=== PATIENT | male | born 1955 | race Caucasian/White ===

== ENCOUNTER → 2018-01-16 | Outpatient (CLI) | payer OTHER ==
--- NOTE | 2018-01-16 11:23 | FL ---
Barium swallow HISTORY: Dysphagia 34 seconds fluoroscopy time, 96 images obtained Patient was given high density barium to drink. There is no obstruction to flow evident. No intrinsic or extrinsic esophageal lesion. Mild degenerative disc changes noted incidentally in the cervical sp ine. No evident hiatal hernia. Small amount of gastroesophageal reflux was noted in the distal esopha rafi. IMPRESSION: Gastroesophageal reflux.
== END | disposition home or self-care (01) ==
LOC: RADFLWHC 08:49
PROVIDERS: ATTEND Otolaryngology
DX: K21.9 Gastro-esophageal reflux disease without esophagitis (principal)
CPT/HCPCS: 74220

== ENCOUNTER → 2018-12-12 | Outpatient (CLI) | payer OTHER ==
--- NOTE | 2018-12-12 09:00 | US ---
EXAMINATION TYPE: US abdomen complete DATE OF EXAM: 12/12/2018 COMPARISON: NONE CLINICAL HISTORY: K30 Functional dyspepsia. EXAM MEASUREMENTS: Liver Length: 24.7 cm Gallbladder Wall: 0.2 cm CBD: 0.3 cm Spleen: 13.0 cm Right Kidney: 12.6 x 5.5 x 6.3 cm Left Kidney: 13.3 x 6.5 x 5.4 cm Morbidly obese patient with large abdomen causing severe technically difficulties and limiting study. Pancreas: Obscured by bowel gas Liver: innumerable cysts, heterogenous and attenuating, enlarged Gallbladder: wnl Evidence for sonographic Crowley's sign: no CBD: wnl Spleen: measures upper limites of normal in size Right Kidney: measures large, inferior pole obscured Left Kidney: very limited visualization, measures large Upper IVC: very limited visualization Abd Aorta: Obscured by overlying bowel gas The liver is diffusely heterogenous with innumerable cysts. Extremely limited evaluation of the IVC a nd obscured aorta. There is no evidence of cholelithiasis. Common bile duct is unremarkable. The p ancreas is obscured. The spleen is unremarkable. Kidneys are mostly obscured. No gross evidence of hydronephrosis. Evaluation for masses is nondiagnostic. IMPRESSION: 1. No sonographic evidence of cholelithiasis nor acute cholecystitis. 2. Hepatomegaly, findings most commonly related to hepatic steatosis but can be seen in other hepatoc ellular diseases, and innumerable hepatic cysts. 3. Spleen is upper limits of normal in size approaching criteria for splenomegaly. 4. No sonographic evidence of cholelithiasis nor acute cholecystitis. 5. Limited exam with obscuration of the pancreas and aorta and very limited evaluation of the kidneys and inferior vena cava.
== END | disposition home or self-care (01) ==
LOC: RADUSWWP 06:40
DX: K76.89 Other specified diseases of liver (principal)
CPT/HCPCS: 76700

== ENCOUNTER → 2019-06-14 | Outpatient (CLI) | payer OTHER ==
[2019-06-14 10:46] LABS: African American GFR (CKD) >90 (>60 ml/min/1.73 sqM); Blood Urea Nitrogen 14 mg/dL (9-20); Non-African American GFR(CKD) >90 (>60 ml/min/1.73 sqM)
--- NOTE | 2019-06-14 11:52 | CT ---
EXAMINATION TYPE: CT abdomen wo/w con DATE OF EXAM: 06/14/2019 COMPARISON: None INDICATION: Epigastric abdominal pain. DLP: 3615.5 mGycm, Automated exposure control for dose reduction was used. CONTRAST: 100ml mL of Isovue 300. Study performed with Oral Contrast TECHNIQUE: Axial images were obtained from above the diaphragm to the pubic rami in the axial plane a t 5 mm thick sections. Reconstructed images are reviewed on the computer in the coronal plane. FINDINGS: Limited CT sections are obtained the lung bases. The lung bases are clear. CT ABDOMEN: Liver: There is extensive hypodensities scattered throughout the liver, most likely on the basis of h epatic cysts. Spleen: Normal Pancreas: There is some fatty infiltration of the pancreas. Adrenal glands: The adrenal glands are normal. Gallbladder: Normal Kidneys: No masses are evident. No hydronephrosis is present. No cysts are present. No renal stone s are evident on precontrast images. Aorta: Vascular calcification is within the aorta. Inferior vena cava: Normal. Vertebral contrast is present. Loops of bowel distended with oral contrast appear unremarkable. No di lated small bowel loops are evident. Fecal debris is within the colon. IMPRESSIONS: 1. Multiple hepatic cysts. 2. No suspicious acute changes CT abdomen.
== END | disposition home or self-care (01) ==
LOC: RADCTMAIN 10:07
DX: K76.89 Other specified diseases of liver (principal); R10.9 Unspecified abdominal pain
CPT/HCPCS: 82565; 84520; 74170; 36415; Q9967

== ENCOUNTER 2019-10-22 12:03 | Inpatient (IN) | payer OTHER, MEDICARE ==
--- NOTE | 2019-10-22 12:41 | ED ---
Chest Pain HPI - General Chief Complaint: Chest Pain Stated Complaint: chest pain, fever Time Seen by Provider: 10/22/19 12:10 Source: patient, RN notes reviewed Mode of arrival: wheelchair Limitations: no limitations - History of Present Illness Initial Comments: Is a 63-year-old male with a history of atrial fibrillation was a smoker also has chronic headaches after a trauma years ago who presents from [id number] with complaints of intermittent sharp chest pain this started about 3 days ago he was at rest. He states he had some shortness of breath with it and has exertional dyspnea. He also states he's had a fever of up to 101.2 with no cough no phlegm production no chills no sweats he has had some nausea with it. He states he is not been exposed to anyone is been sick other than his son had constipation. He states the pain was sharp in nature H/10 severity when it happened. He currently is pain-free. He does have his typical chronic headache. No earache sore throat rhinorrhea no dysuria no other modifying factors. MD Complaint: chest pain, other - Related Data Home Medications Medication Instructions Recorded Confirmed Atorvastatin [Lipitor] 20 mg PO DAILY@1800 01/16/14 10/22/19 Cyclobenzaprine [Flexeril] 10 mg PO HS PRN 01/16/14 10/22/19 Metoprolol Tartrate [Lopressor] 25 mg PO BID@0800,1800 01/16/14 10/22/19 Nitroglycerin Sl Tabs [Nitrostat] 0.4 mg SL Q5M PRN 01/16/14 10/22/19 Insulin Glargine,Hum.rec.anlog 55 unit SQ DAILY 02/11/17 10/22/19 [Lantus Solostar] metFORMIN HCL 1,000 mg PO BID@0800,1800 02/11/17 10/22/19 Alogliptin Benzoate [Alogliptin] 25 mg PO DAILY 10/22/19 10/22/19 Apixaban [Eliquis] 5 mg PO BID@0800,1800 10/22/19 10/22/19 Aspirin EC [Ecotrin Low Dose] 81 mg PO DAILY 10/22/19 10/22/19 INSULIN ASPART (NovoLOG) [NovoLOG See Protocol SQ AC-TID 10/22/19 10/22/19 (formulary)] Omeprazole 20 mg PO DAILY 10/22/19 10/22/19 hydroCHLOROthiazide [Hydrodiuril] 50 mg PO DAILY 10/22/19 10/22/19 Allergies Allergy/AdvReac Type Severity Reaction Status Date / Time meclizine [From Antivert] Allergy Hallucinati Verified 10/22/19 12:11 ons Review of Systems ROS Statement: Those systems with pertinent positive or pertinent negative responses have been documented in the HPI. ROS Other: All systems not noted in ROS Statement are negative. EKG Findings - EKG Results: EKG: interpreted by ERMD, sinus rhythm (Normal sinus rhythm of 78. ND interval 170 QRS duration 78 QT/ QTC 382/[address]-T wave changes. Evidence of prominent Q waves in lead 3) Past Medical History Past Medical History: Atrial Fibrillation, Diabetes Mellitus, Hyperlipidemia, Hypertension Additional Past Medical History / Comment(s): MIGRAINES, AFIB, Neuropathy History of Any Multi-Drug Resistant Organisms: None Reported Past Surgical History: Appendectomy Additional Past Surgical History / Comment(s): SPINE FUSION, Cyst removal from leg Past Anesthesia/Blood Transfusion Reactions: No Reported Reaction Past Psychological History: No Psychological Hx Reported Smoking Status: Former smoker Past Alcohol Use History: None Reported Past Drug Use History: None Reported General Exam - General Exam Comments Initial Comments: This a well-developed well-nourished awake alert oriented times 3 male Limitations: no limitations General appearance: alert, in no apparent distress Head exam: Present: atraumatic, normocephalic, normal inspection Eye exam: Present: normal appearance, PERRL, EOMI. Absent: scleral icterus, co njunctival injection, periorbital swelling ENT exam: Present: normal exam, mucous membranes moist Neck exam: Present: normal inspection, full ROM, other (No stridor JVD or bruits). Absent: tenderness, meningismus, lymphadenopathy Respiratory exam: Present: normal lung sounds bilaterally. Absent: respiratory distress, wheezes, rales, rhonchi, stridor, chest wall tenderness Cardiovascular Exam: Present: regular rate, normal rhythm, normal heart sounds. Absent: systolic murmur, diastolic murmur, rubs, gallop, clicks GI/Abdominal exam: Present: soft, normal bowel sounds, other (Obese abdomen). Absent: distended, tenderness, guarding, rebound, rigid, bruit, pulsatile mass Extremities exam: Present: full ROM, normal capillary refill, other (Minimal stasis changes). Absent: tenderness, pedal edema, joint swelling, calf tenderness Back exam: Present: normal inspection Neurological exam: Present: alert, oriented X3, CN II-XII intact Psychiatric exam: Present: normal affect, normal mood Skin exam: Present: warm, dry, intact, normal color. Absent: rash Course Vital Signs 10/22/19 12:05 Temperature 99.5 F Pulse Rate 81 Respiratory 20 Rate Blood Pressure 130/79 O2 Sat by Pulse 95 Oximetry - Reevaluation(s) Reevaluation #1: 10/22/19 12:42 This EKG is compared to one sent from [facility] showing no changes Reevaluation #2: 10/22/19 13:48 Reevaluation patient reveals no further symptoms at this time. Chest Pain MDM - MDM I did discuss the findings with the patient x-rays are negative for acute findings at this time. Patient's presentation is consistent with atypical chest pain. 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 I did discuss this case with Dr. Cordova who did come to the emergency department see the patient. Disposition Clinical Impression: Atypical chest pain Disposition: ADMITTED IP TO THIS HOSP Condition: Fair Referrals: [facility],Clinic [Primary Care Provider] - 1-2 days
[2019-10-22 12:49] LABS: HCT 44.9 % (39.0-53.0); MCH 28.1 pg (25.0-35.0); MCHC 33.4 g/dL (31.0-37.0); MCV 84.2 fL (80.0-100.0); Mean Platelet Volume 9.4; Platelet Count 163 k/uL (150-450); RBC 5.33 m/uL (4.30-5.90); RDW 14.5 % (11.5-15.5); WBC 6.5 k/uL (3.8-10.6)
[2019-10-22 12:54] LABS: ALT 19 U/L (4-49); AST 21 U/L (17-59); African American GFR (CKD) >90 (>60 ml/min/1.73 sqM); Albumin 3.5 g/dL (3.5-5.0); Alkaline Phosphatase 116 U/L (38-126); Anion Gap 7 mmol/L; Blood Urea Nitrogen 10 mg/dL (9-20); Calcium 8.5 mg/dL (8.4-10.2); Carbon Dioxide 27 mmol/L (22-30); Chloride 100 mmol/L (98-107); Creatine Kinase 48 U/L (55-170); Glucose 170 mg/dL (74-99); Magnesium 1.8 mg/dL (1.6-2.3); Non-African American GFR(CKD) >90 (>60 ml/min/1.73 sqM); Potassium 3.9 mmol/L (3.5-5.1); Sodium 134 mmol/L (137-145); Total Bilirubin 0.8 mg/dL (0.2-1.3); Total Protein 6.2 g/dL (6.3-8.2)
--- NOTE | 2019-10-22 12:58 | XR ---
EXAMINATION TYPE: XR chest 2V DATE OF EXAM: 10/22/2019 COMPARISON: 09/13/2009 HISTORY: 63-year-old male with chest pain TECHNIQUE: PA and lateral views FINDINGS: Heart upper limits of normal in size. Mild interstitial prominence. Some strandy left basilar atelect asis. No consolidation or pleural effusion. IMPRESSION: Interstitial prominence could represent bronchitis or chronic asthma. No focal infiltrate.
[2019-10-22 12:59] LABS: D-Dimer 0.48 mg/L FEU (<0.60); Partial Thromboplastin Time 25.6 sec (22.0-30.0); Prothrombin Time 10.3 sec (9.0-12.0)
[2019-10-22 13:02] LABS: Eosinophils # (M) 0.13 k/uL (0-0.7); Lymphocytes # (M) 1.37 k/uL (1.0-4.8); Monocytes # (M) 0.46 k/uL (0-1.0); Neutrophils # (M) 4.55 k/uL (1.3-7.7); Neutrophils % (M) 70 %; Nucleated Red Blood Cells 0 /100 WBC (0-0); Total Cells Counted 100
[2019-10-22 13:04] LABS: Anisocytosis (M) Present
[2019-10-22] MEDS ORDERED: NITROGLYCERIN SL TABS 0.4 MG TAB SUBLINGUAL PRN (13:51)
[2019-10-22] MEDS ORDERED: SODIUM CHLORIDE 0.9% 1,000 ML IV SCH (14:00)
[2019-10-22] MEDS ORDERED: LIDOCAINE 5% PATCH TOPICAL PRN (15:08)
--- NOTE | 2019-10-22 15:14 | P.HPIM ---
History of Present Illness 63-year-old male with history of A. fib came in with comments of generalized body aches and fever of 101.2. Patient is being admitted to rule out acute medicinebut patient has generalized body aches going on for last 3 days along w ith generalized bodyaches patient also has diffuse abdominal pain chest pain some nausea. Patient has this chest pain going on for about 3 days constant moderate severity. Patient didn't have any fever here. Patient chest x-ray showing some interstitial prominence patient denied orthopnea proximal nocturnal dyspnea patient doesn't have any JVD BNP is only 63 patient had a d-dimer of 0.48 patient chest pain is pleuritic in nature chest x-ray did not show any pneumonia. COVID 19 testing was ordered and results are pending. EKG and troponins are within normal limits Review of Systems REVIEW OF SYSTEMS: CONSTITUTIONAL: As mentioned in HPI HEENT: No recent visual problems or hearing problems. Denied any sore throat. CARDIOVASCULAR: No orthopnea, PND, no palpitations, no syncope. PULMONARY: No shortness of breath, no cough, no hemoptysis. GASTROINTESTINAL: As mentioned in HPI diffuse nonspecific abdominal pain along with nausea NEUROLOGICAL: No headaches, no weakness, no numbness. HEMATOLOGICAL: Denies any bleeding or petechiae. GENITOURINARY: Denies any burning micturition, frequency, or urgency. MUSCULOSKELETAL/RHEUMATOLOGICAL: Denies any joint pain, swelling, or any muscle pain. ENDOCRINE: Denies any polyuria or polydipsia. The rest of the 14-point review of systems is negative. Past Medical History Past Medical History: Atrial Fibrillation, Diabetes Mellitus, Hyperlipidemia, Hypertension Additional Past Medical History / Comment(s): MIGRAINES, AFIB, Neuropathy History of Any Multi-Drug Resistant Organisms: None Reported Past Surgical History: Appendectomy Additional Past Surgical History / Comment(s): SPINE FUSION, Cyst removal from leg Past Anesthesia/Blood Transfusion Reactions: No Reported Reaction Past Psychological History: No Psychological Hx Reported Smoking Status: Former smoker Past Alcohol Use History: None Reported Past Drug Use History: None Reported Medications and Allergies Home Medications Medication Instructions Recorded Confirmed Type Cyclobenzaprine [Flexeril] 10 mg PO HS PRN 01/16/14 10/22/19 History Metoprolol Tartrate [Lopressor] 25 mg PO BID@0800,1800 01/16/14 10/22/19 History Nitroglycerin Sl Tabs [Nitrostat] 0.4 mg SL Q5M PRN 01/16/14 10/22/19 History Insulin Glargine,Hum.rec.anlog 55 unit SQ DAILY 02/11/17 10/22/19 History [Lantus Solostar] metFORMIN HCL 1,000 mg PO BID@0800,1800 02/11/17 10/22/19 History Alogliptin Benzoate [Alogliptin] 25 mg PO DAILY 10/22/19 10/22/19 History Apixaban [Eliquis] 5 mg PO BID@0800,1800 10/22/19 10/22/19 History Aspirin EC [Ecotrin Low Dose] 81 mg PO DAILY 10/22/19 10/22/19 History Atorvastatin [Lipitor] 20 mg PO DAILY@1800 10/22/19 10/22/19 History Insulin Aspart [NovoLOG Flexpen] See Protocol SQ AC-TID 10/22/19 10/22/19 History Lidocaine 5% Patch [Lidoderm] 1 patch TOPICAL DAILY PRN 10/22/19 10/22/19 Histor y Multivitamins, Thera [Multivitamin 1 tab PO DAILY 10/22/19 10/22/19 History (formulary)] Omeprazole 20 mg PO DAILY 10/22/19 10/22/19 History hydroCHLOROthiazide [Hydrodiuril] 25 mg PO DAILY 10/22/19 10/22/19 History Allergies Allergy/AdvReac Type Severity Reaction Status Date / Time meclizine [From Antivert] Allergy Hallucinati Verified 10/22/19 12:11 ons Physical Exam Vitals: Vital Signs Temp Pulse Resp BP Pulse Ox 10/22/19 15:07 98.6 F 80 18 143/59 96 10/22/19 12:05 99.5 F 81 20 130/79 95 Intake and Output 10/22/19 10/22/19 10/22/19 06:59 14:59 22:59 Other: Weight 170.097 kg PHYSICAL EXAMINATION: GENERAL: The patient is alert and oriented x3, not in any acute distress. Well developed, well nourished. HEENT: Pupils are round and equally reacting to light. EOMI. No scleral icterus. No conjunctival pallor. Normocephalic, atraumatic. No pharyngeal erythema. No thyromegaly. CARDIOVASCULAR: S1 and S2 present. No murmurs, rubs, or gallops. PULMONARY: Chest is clear to auscultation, no wheezing or crackles. ABDOMEN: Soft, nontender, nondistended, normoactive bowel sounds. No palpable organomegaly. MUSCULOSKELETAL: No joint swelling or deformity. EXTREMITIES: No cyanosis, clubbing, or pedal edema. NEUROLOGICAL: Gross neurological examination did not reveal any focal deficits. SKIN: No rashes. Note: Because of COVID 19 isolation, some of the history and physical exam findings or indirect and obtained from nursing staff, and other physician examinations to avoid unnecessary contact with the patient. Results CBC & Chem 7: 10/22/19 12:17 10/22/19 12:17 Labs: Abnormal Lab Results - Last 24 Hours (Table) 10/22/19 Range/Units 12:17 Sodium 134 L (137-145) mmol/L Creatinine 0.55 L (0.66-1.25) mg/dL Glucose 170 H (74-99) mg/dL Creatine Kinase 48 L (55-170) U/L Total Protein 6.2 L (6.3-8.2) g/dL Assessment and Plan Plan: Generalized body aches and chest pain: Chest pain is atypical we'll rule out acute medicine syndromes will also need to rule out Covid 19 patient may have mild a nonspecific viral illness. She will be monitored overnight -Possible gastritis or gastroesophageal reflux disease for which patient was started on Protonix -Type 2 diabetes mellitus patient is resumed on his home regimen except for metformin, sliding scale will be added -Hyperlipidemia -History of A. fib presently rate controlled sinus rhythm on Eliquis which will be continued -Hypertension. -Obesity
[2019-10-22 17:11] LABS: Glucose,Whole Blood 127 mg/dL (75-99)
[2019-10-22] MEDS: INSULIN ASPART (NovoLOG) 100 UNIT/ML VIAL SQ SCH ×2 (17:11→20:42)
[2019-10-22] MEDS: SODIUM CHLORIDE 0.9% 1,000 ML IV SCH (17:14)
[2019-10-22] MEDS: METOPROLOL TARTRATE 25 MG TAB PO SCH (17:15)
[2019-10-22] MEDS: APIXABAN 5 MG TAB PO SCH (17:15)
[2019-10-22] MEDS: ATORVASTATIN 20 MG TAB PO SCH (17:15)
[2019-10-22] MEDS ORDERED: metFORMIN 500 MG TAB PO SCH (18:00)
[2019-10-22 20:38] LABS: Glucose,Whole Blood 154 mg/dL (75-99)
[2019-10-22] MEDS: CYCLOBENZAPRINE 10 MG TAB PO PRN (21:24)
[2019-10-23] MEDS: SODIUM CHLORIDE 0.9% 1,000 ML IV SCH ×2 (05:22→21:41)
[2019-10-23] MEDS: INSULIN DETEMIR (LEVEMIR) 100 UNIT/ML SYR SQ SCH (06:25)
[2019-10-23 06:26] LABS: Glucose,Whole Blood 119 mg/dL (75-99)
[2019-10-23 06:42] LABS: Cholesterol 120 mg/dL (<200); HDL Cholesterol 26 mg/dL (40-60); LDL Cholesterol,Calculated 67 mg/dL (0-99); Triglycerides 136 mg/dL (<150)
[2019-10-23] MEDS: INSULIN ASPART (NovoLOG) 100 UNIT/ML VIAL SQ SCH ×4 (09:36→21:41)
[2019-10-23] MEDS: ASPIRIN 325 MG TAB PO SCH (09:38)
[2019-10-23] MEDS: PANTOPRAZOLE 40 MG TABLET PO SCH (09:38)
[2019-10-23] MEDS: LINAGLIPTIN 5 MG TABLET PO SCH (09:38)
[2019-10-23] MEDS: APIXABAN 5 MG TAB PO SCH ×2 (09:39→17:00)
[2019-10-23 10:37] LABS: Glucose,Whole Blood 130 mg/dL (75-99)
[2019-10-23] MEDS: METOPROLOL TARTRATE 25 MG TAB PO SCH ×2 (11:32→17:00)
--- NOTE | 2019-10-23 11:43 | P.CRDCN ---
History of Present Illness Consult date: 10/23/19 Chief complaint: Chest pain History of present illness: This is a very pleasant 63-year-old gentleman who sees Dr. Benitez in the office on regular basis with a past medical history significant for paroxysmal atrial fibrillation as well as diabetes presented to the hospital complaining of generalized pain associated with fever. The temperature was 101.2. The patient admitting symptoms of having "body ache". The reason we consulted to see the patient because he describes chest discomfort. He described the discomfort as sharp over the left side of the chest without any radiation to the arms or neck or shoulders and without any associated symptoms. No nausea or vomiting. No loss of consciousness or syncope. No history of coronary artery disease or congestive heart failure or cardiac arrhythmia beside the atrial fibrillation. According to him he was told by Dr. Benitez that he needs to undergo a heart catheterization but that never done. I am in process of getting a copy of the previous medical records from the office for further clarification. The EKG showed sinus rhythm with ST changes in the inferior leads. 3 sets of cardiac enzymes came in to be unremarkable. We are going to obtain an echocardiogram was Doppler at this point. Also will review his previous medical records and based on that decide what needs to be done in terms of ruling out severe underlying coronary artery disease is a resident outpatient or as an inpatient. Past Medical History Past Medical History: Atrial Fibrillation, Diabetes Mellitus, Hyperlipidemia, Hypertension Additional Past Medical History / Comment(s): MIGRAINES, AFIB, Neuropathy History of Any Multi-Drug Resistant Organisms: None Reported Past Surgical History: Appendectomy Additional Past Surgical History / Comment(s): SPINE FUSION, Cyst removal from leg Past Anesthesia/Blood Transfusion Reactions: No Reported Reaction Past Psychological History: No Psychological Hx Reported Smoking Status: Former smoker Past Alcohol Use History: None Reported Past Drug Use History: None Reported Medications and Allergies Home Medications Medication Instructions Recorded Confirmed Type Cyclobenzaprine [Flexeril] 10 mg PO HS PRN 01/16/14 10/22/19 History Metoprolol Tartrate [Lopressor] 25 mg PO BID@0800,1800 01/16/14 10/22/19 History Nitroglycerin Sl Tabs [Nitrostat] 0.4 mg SL Q5M PRN 01/16/14 10/22/19 History Insulin Glargine,Hum.rec.anlog 55 unit SQ DAILY 12/08/17 08/17/20 History [Lantus Solostar] metFORMIN HCL 1,000 mg PO BID@0800,1800 02/11/17 10/22/19 History Alogliptin Benzoate [Alogliptin] 25 mg PO DAILY 10/22/19 10/22/19 History Apixaban [Eliquis] 5 mg PO BID@0800,1800 10/22/19 10/22/19 History Aspirin EC [Ecotrin Low Dose] 81 mg PO DAILY 10/22/19 10/22/19 History Atorvastatin [Lipitor] 20 mg PO DAILY@1800 10/22/19 10/22/19 History Insulin Aspart [NovoLOG Flexpen] See Protocol SQ AC-TID 10/22/19 10/22/19 History Lidocaine 5% Patch [Lidoderm] 1 patch TOPICAL DAILY PRN 10/22/19 10/22/19 History Multivitamins, Thera [Multivitamin 1 tab PO DAILY 10/22/19 10/22/19 History (formulary)] Omeprazole 20 mg PO DAILY 10/22/19 10/22/19 History hydroCHLOROthiazide [Hydrodiuril] 25 mg PO DAILY 10/22/19 10/22/19 History Allergies Allergy/AdvReac Type Severity Reaction Status Date / Time meclizine [From Antivert] Allergy Hallucinati Verified 10/22/19 12:11 ons Physical Exam Vitals: Vital Signs Temp Pulse Pulse Resp BP BP BP 10/23/19 09:00 16 10/23/19 08:03 98.1 F 63 16 106/59 10/23/19 03:00 98.5 F 64 131/64 10/22/19 21:00 71 10/22/19 20:29 98.2 F 71 124/86 10/22/19 15:07 98.6 F 80 18 143/59 10/22/19 12:05 99.5 F 81 20 130/79 Pulse Ox 10/23/19 09:00 10/23/19 08:03 95 10/23/19 03:00 97 10/22/19 21:00 10/22/19 20:29 96 10/22/19 15:07 96 10/22/19 12:05 95 Intake and Output 10/22/19 10/23/19 10/23/19 22:59 06:59 14:59 Intake Total 250 225 Output Total 300 Balance 250 -300 225 Intake: Intake, IV Titration 225 Amount Sodium Chloride 0.9% 1, 225 000 ml @ 75 mls/hr IV . [id number] COUNTS INCLUDE 234 BEDS AT THE [facility] Rx#:[id number] Oral 250 Output: Urine 300 Other: Voiding Method Toilet Toilet Toilet # Voids 1 1 2 Weight 170.097 kg - Constitutional General appearance: no acute distress - Respiratory Respiratory: bilateral: CTA - Cardiovascular Rhythm: regular Heart sounds: normal: S1, S2 Results 10/22/19 12:17 10/22/19 12:17 Cardiac Enzymes 10/22/19 10/22/19 10/22/19 Range/Units 12:17 12:17 15:34 AST 21 (17-59) U/L Troponin I <0.012 <0.012 (0.000-0.034) ng/mL 10/22/19 Range/Units 18:20 AST (17-59) U/L Troponin I <0.012 (0.000-0.034) ng/mL Coagulation 10/22/19 Range/Units 12:17 PT 10.3 (9.0-12.0) sec APTT 25.6 (22.0-30.0) sec Lipids 10/23/19 Range/Units 05:56 Triglycerides 136 (<150) mg/dL Cholesterol 120 (<200) mg/dL HDL Cholesterol 26 L (40-60) mg/dL CBC 10/22/19 Range/Units 12:17 WBC 6.5 (3.8-10.6) k/uL RBC 5.33 (4.30-5.90) m/uL Hgb 15.0 (13.0-17.5) gm/dL Hct 44.9 (39.0-53.0) % Plt Count 163 (150-450) k/uL Comprehensive Metabolic Panel 10/22/19 Range/Units 12:17 Sodium 134 L (137-145) mmol/L Potassium 3.9 (3.5-5.1) mmol/L Chloride 100 (98-107) mmol/L Carbon Dioxide 27 (22-30) mmol/L BUN 10 (9-20) mg/dL Creatinine 0.55 L (0.66-1.25) mg/dL Glucose 170 H (74-99) mg/dL Calcium 8.5 (8.4-10.2) mg/dL AST 21 (17-59) U/L ALT 19 (4-49) U/L Alkaline Phosphatase 116 (38-126) U/L Total Protein 6.2 L (6.3-8.2) g/dL Albumin 3.5 (3.5-5.0) g/dL Current Medications Generic Name Dose Route Start Last Admin Trade Name Tristenq PRN Reason Stop Dose Admin Apixaban 5 mg 10/22/19 18:00 10/23/19 09:39 Eliquis PO 5 mg BID@0800,1800 COUNTS INCLUDE 234 BEDS AT THE [facility] Administration Aspirin 325 mg 10/23/19 09:00 10/23/19 09:38 Aspirin PO 325 mg DAILY COUNTS INCLUDE 234 BEDS AT THE [facility] Administration Atorvastatin Calcium 20 mg 10/22/19 18:00 10/22/19 17:15 Lipitor PO 20 mg DAILY@1800 COUNTS INCLUDE 234 BEDS AT THE [facility] Administration Cyclobenzaprine HCl 10 mg 10/22/19 13:53 10/22/19 21:24 Flexeril PO 10 mg HS PRN Administration Pain Sodium Chloride 1,000 mls @ 75 mls/hr 10/22/19 15:15 10/23/19 05:22 Saline 0.9% IV 75 mls/hr .[id number] COUNTS INCLUDE 234 BEDS AT THE [facility] Administration Insulin Aspart 0 unit 10/22/19 17:30 10/23/19 11:32 [facility]olog SQ Not [facility] Protocol Insulin Detemir 55 unit 10/23/19 07:00 10/23/19 06:25 Levemir SQ 55 unit DAILY@0700 COUNTS INCLUDE 234 BEDS AT THE [facility] Administration Lidocaine 1 patch 10/22/19 15:08 Lidoderm TOPICAL DAILY PRN Pain Linagliptin 5 mg 10/23/19 09:00 10/23/19 09:38 Tradjenta PO 5 mg DAILY COUNTS INCLUDE 234 BEDS AT THE [facility] Administration Metoprolol Tartrate 25 mg 10/22/19 18:00 10/23/19 11:32 Lopressor PO Not Given BID@0800,1800 COUNTS INCLUDE 234 BEDS AT THE [facility] Nitroglycerin 0.4 mg 10/22/19 13:51 Nitrostat SUBLINGUAL Q5M PRN Chest Pain Pantoprazole Sodium 40 mg 10/23/19 07:30 10/23/19 09:38 Protonix PO 40 mg [id number] COUNTS INCLUDE 234 BEDS AT THE [facility] Administration Intake and Output 10/22/19 10/23/1920 22:59 06:59 14:59 Intake Total 250 225 Output Total 300 Balance 250 -300 225 Intake: Intake, IV Titration 225 Amount Sodium Chloride 0.9% 1, 225 000 ml @ 75 mls/hr IV . [id number] COUNTS INCLUDE 234 BEDS AT THE [facility] Rx#:[id number] Oral 250 Output: Urine 300 Other: Voiding Method Toilet Toilet Toilet # Voids 1 1 2 Weight 170.097 kg 10/22/19 12:17 10/22/19 12:17 Assessment and Plan Assessment: Assessment #1 generalized weakness and pain #2 fever of unknown etiology #3 atypical chest pain #4 paroxysmal atrial fibrillation #5 diabetes Plan #1 acute coronary event was ruled out #2 consider conservative medical approach at this point #3 obtain the previous medical records from the office #4 further recommendation to follow that Thank you for allowing us participate in his care
--- NOTE | 2019-10-23 15:06 | P.PN ---
Subjective 63-year-old male with history of A. fib came in with comments of generalized body aches and fever of 101.2. Patient is being admitted to rule out acute medicinebut patient has generalized body aches going on for last 3 days along with generalized bodyaches patient also has diffuse abdominal pain chest pain some nausea. Patient has this chest pain going on for about 3 days constant moderate severity. Patient didn't have any fever here. Patient chest x-ray showing some interstitial prominence patient denied orthopnea proximal nocturnal dyspnea patient doesn't have any JVD BNP is only 63 patient had a d-dimer of 0.48 patient chest pain is pleuritic in nature chest x-ray did not show any pneumonia. COVID 19 testing was ordered and results are pending. EKG and troponins are within normal limits 10/23/2019 Patient still having some generalized body aches. Probably acute viral illness Covid 19 test was done and that was negative and was ruled out. Chest pain is atypical. Cardiology is waiting to review his previous medical records depending on that decision regarding further intervention will be made by cardiology. Constitutional: Denied any fatigue denied any fever. Cardio vascular: denied any chest pain, palpitations Gastrointestinal denied any nausea vomiting Pulmonary: Denied any shortness of breath cough Neurologic denied any new focal deficits All inpatient medications were reviewed and appropriate changes in these medications as dictated in the interval history and assessment and plan. Objective - Vital Signs Vital signs: Vital Signs Temp 98.1 F 10/23/19 08:03 Pulse 63 10/23/19 08:03 Resp 16 10/23/19 09:00 BP 106/59 10/23/19 08:03 Pulse Ox 95 10/23/19 08:03 Intake & Output 10/22/19 10/23/19 10/23/19 18:59 06:59 18:59 Intake Total 250 225 Output Total 300 Balance -50 225 Weight 170.097 kg Intake: Intake, IV Titration 225 Amount Sodium Chloride 0.9% 1, 225 000 ml @ 75 mls/hr IV . [id number] [facility] Rx#:[id number] Oral 250 Output: Urine 300 Other: Voiding Method Toilet Toilet # Voids 1 1 2 - Exam PHYSICAL EXAMINATION: GENERAL: The patient is alert and oriented x3, not in any acute distress. Well developed, well nourished. HEENT: Pupils are round and equally reacting to light. EOMI. No scleral icterus. No conjunctival pallor. Normocephalic, atraumatic. No pharyngeal erythema. No thyromegaly. CARDIOVASCULAR: S1 and S2 present. No murmurs, rubs, or gallops. PULMONARY: Chest is clear to auscultation, no wheezing or crackles. ABDOMEN: Soft, nontender, nondistended, normoactive bowel sounds. No palpable organomegaly. MUSCULOSKELETAL: No joint swelling or deformity. EXTREMITIES: No cyanosis, clubbing, or pedal edema. NEUROLOGICAL: Gross neurological examination did not reveal any focal deficits. SKIN: No rashes. Note: Because of COVID 19 isolation, some of the history and physical exam findings or indirect and obtained from nursing staff, and other physician examinations to avoid unnecessary contact with the patient. - Labs CBC & Chem 7: 10/22/19 12:17 10/22/19 12:17 Labs: Abnormal Lab Results - Last 24 Hours (Table) 10/22/19 10/22/19 10/23/19 Range/Units 17:00 20:37 05:56 POC Glucose (mg/dL) 127 H 154 H (75-99) mg/dL HDL Cholesterol 26 L (40-60) mg/dL 10/23/19 10/23/19 Range/Units 06:25 10:36 POC Glucose (mg/dL) 119 H 130 H (75-99) mg/dL HDL Cholesterol (40-60) mg/dL Microbiology - Last 24 Hours (Table) 10/22/19 12:31 Blood Culture - Preliminary Blood No Growth after 24 hours Assessment and Plan Plan: Generalized body aches and chest pain: Chest pain is atypical we'll rule out acute coronary syndromes will also need to rule out Covid 19 patient may have mild a nonspecific viral illness. She will be monitored overnight -Possible gastritis or gastroesophageal reflux disease for which patient was started on Protonix -Type 2 diabetes mellitus patient is resumed on his home regimen except for metformin, sliding scale will be added -Hyperlipidemia -History of A. fib presently rate controlled sinus rhythm on Eliquis which will be continued -Hypertension. -Obesity
[2019-10-23] MEDS: CYCLOBENZAPRINE 10 MG TAB PO PRN (15:53)
[2019-10-23 16:25] LABS: Glucose,Whole Blood 166 mg/dL (75-99)
[2019-10-23] MEDS: ATORVASTATIN 20 MG TAB PO SCH (17:00)
[2019-10-23 21:36] LABS: Glucose,Whole Blood 154 mg/dL (75-99)
[2019-10-24] MEDS: CYCLOBENZAPRINE 10 MG TAB PO PRN ×2 (04:40→16:52)
[2019-10-24] MEDS: SODIUM CHLORIDE 0.9% 1,000 ML IV SCH ×2 (06:34→20:36)
[2019-10-24] MEDS: PANTOPRAZOLE 40 MG TABLET PO SCH (06:34)
[2019-10-24 06:35] LABS: Glucose,Whole Blood 133 mg/dL (75-99)
--- NOTE | 2019-10-24 09:51 | P.PN ---
Subjective Progress Note Date: 10/24/19 Principal diagnosis: Chest pain This is a very pleasant 63-year-old gentleman who sees Dr. Benitez in the office on regular basis with a past medical history significant for paroxysmal atrial fibrillation as well as diabetes presented to the hospital complaining of generalized pain associated with fever. The temperature was 101.2. The patient admitting symptoms of having "body ache". The reason we consulted to see the patient because he describes chest discomfort. He described the discomfort as sharp over the left side of the chest without any radiation to the arms or neck or shoulders and without any associated symptoms. No nausea or vomiting. No loss of consciousness or syncope. No history of coronary artery disease or congestive heart failure or cardiac arrhythmia beside the atrial fibrillation. According to him he was told by Dr. Benitez that he needs to undergo a heart catheterization but that never done. I am in process of getting a copy of the previous medical records from the office for further clarification. The EKG showed sinus rhythm with ST changes in the inferior leads. 3 sets of cardiac enzymes came in to be unremarkable. The patient was seen today October [id number]. I did review the records and the patient was advised to undergo a heart catheterization. He would like to pursue with a heart catheterization. I am going to schedule the patient to undergo that in the next 12-24 hours. Objective - Vital Signs Vital signs: Vital Signs Temp 98 F 10/24/19 08:12 Pulse 66 10/24/19 08:12 Resp 16 10/24/19 08:12 BP 115/61 10/24/19 08:12 Pulse Ox 94 L 10/24/19 08:12 Intake & Output 10/23/19 10/24/19 10/24/19 18:59 06:59 18:59 Intake Total 725 Balance 725 Intake: Intake, IV Titration 225 Amount Sodium Chloride 0.9% 1, 225 000 ml @ 75 mls/hr IV . [id number] Rx#:[id number] Oral 500 Other: Voiding Method Toilet Toilet Toilet # Voids 3 2 2 - Constitutional General appearance: Present: no acute distress - Respiratory Respiratory: bilateral: CTA - Cardiovascular Rhythm: regular Heart sounds: normal: S1, S2 - Labs CBC & Chem 7: 10/22/19 12:17 10/22/19 12:17 Labs: Abnormal Lab Results - Last 24 Hours (Table) 10/23/19 10/23/19 10/23/19 Range/Units 10:36 16:23 21:34 POC Glucose (mg/dL) 130 H 166 H 154 H (75-99) mg/dL 10/24/19 Range/Units 06:32 POC Glucose (mg/dL) 133 H (75-99) mg/dL Microbiology - Last 24 Hours (Table) 10/22/19 12:31 Blood Culture - Preliminary Blood No Growth after 24 hours Assessment and Plan Assessment: Assessment #1 generalized weakness and pain #2 fever of unknown etiology #3 atypical chest pain #4 paroxysmal atrial fibrillation #5 diabetes Plan #1 consider proceeding with coronary angiogram #2 follow-up with the patient
[2019-10-24] MEDS: ASPIRIN 325 MG TAB PO SCH (09:59)
[2019-10-24] MEDS: INSULIN DETEMIR (LEVEMIR) 100 UNIT/ML SYR SQ SCH (10:00)
[2019-10-24] MEDS: METOPROLOL TARTRATE 25 MG TAB PO SCH ×2 (10:00→16:51)
[2019-10-24] MEDS: APIXABAN 5 MG TAB PO SCH ×2 (10:00→20:33)
[2019-10-24] MEDS: INSULIN ASPART (NovoLOG) 100 UNIT/ML VIAL SQ SCH ×4 (10:00→20:33)
[2019-10-24] MEDS: LINAGLIPTIN 5 MG TABLET PO SCH (10:01)
[2019-10-24 11:33] LABS: Glucose,Whole Blood 178 mg/dL (75-99)
--- NOTE | 2019-10-24 14:00 | ECHOF ---
Referral Reason:chest pain MEASUREMENTS -------- HEIGHT: 162.6 cm WEIGHT: 170.1 kg BP: IVSd: 1.4 cm (0.6 - 1.1) LVIDd: 5.0 cm (3.9 - 5.3) LVPWd: 1.3 cm (0.6 - 1.1) IVSs: 1.4 cm LVIDs: 4.1 cm LVPWs: 1.4 cm LA Diam: 4.7 cm (2.7 - 3.8) MV E Robel: 0.79 m/s MV DecT: 118 ms MV A Robel: 0.74 m/s MV E/A Ratio: 1.07 RAP: 5.00 mmHg RVSP: 14.14 mmHg FINDINGS -------- Sinus rhythm. Morbid Obesity The left ventricular size is normal. There is moderate concentric left ventricular hypertrophy. O verall left ventricular systolic function is low-normal with, an EF between 50 - 55 %. The right ventricle is normal in size. The left atrium is mildly dilated. The right atrial size is normal. 5.0mg OF Lumason UTLIZED: 2 OR MORE WALL SEGMENTS NOT VISUALIZED. The aortic valve was not well visualized. Mild mitral regurgitation is present. The tricuspid valve was not well visualized. Unable to estimate RVSP due to inadequate TR jet spect ral doppler profile. The pulmonic valve was not well visualized. The aortic root size is normal. There is no pericardial effusion. CONCLUSIONS -------- 1. Morbid Obesity 2. The left ventricular size is normal. 3. There is moderate concentric left ventricular hypertrophy. 4. Overall left ventricular systolic function is low-normal with, an EF between 50 - 55 %. 5. The right ventricle is normal in size. 6. The left atrium is mildly dilated. 7. The right atrial size is normal. 8. The aortic valve was not well visualized. 9. Mild mitral regurgitation is present. 10. The tricuspid valve was not well visualized. 11. Unable to estimate RVSP due to inadequate TR jet spectral doppler profile. 12. The pulmonic valve was not well visualized. COPER HAND: Love Guzman RDCS
--- NOTE | 2019-10-24 14:46 | P.PN ---
Subjective 63-year-old male with history of A. fib came in with comments of generalized body aches and fever of 101.2. Patient is being admitted to rule out acute medicinebut patient has generalized body aches going on for last 3 days along with generalized bodyaches patient also has diffuse abdominal pain chest pain some nausea. Patient has this chest pain going on for about 3 days constant moderate severity. Patient didn't have any fever here. Patient chest x-ray showing some interstitial prominence patient denied orthopnea proximal nocturnal dyspnea patient doesn't have any JVD BNP is only 63 patient had a d-dimer of 0.48 patient chest pain is pleuritic in nature chest x-ray did not show any pneumonia. COVID 19 testing was ordered and results are pending. EKG and troponins are within normal limits 10/23/2019 Patient still having some generalized body aches. Probably acute viral illness Covid 19 test was done and that was negative and was ruled out. Chest pain is atypical. Cardiology is waiting to review his previous medical records depending on that decision regarding further intervention will be made by cardiology. 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 Patient's cardiac catheterization Reports were reviewed by cardiology and they're recommending cardiac catheterization again. Constitutional: Denied any fatigue denied any fever. Cardio vascular: denied any palpitations Gastrointestinal denied any nausea vomiting Pulmonary: Denied any shortness of breath cough Neurologic denied any new focal deficits All inpatient medications were reviewed and appropriate changes in these med ications as dictated in the interval history and assessment and plan. Objective - Vital Signs Vital signs: Vital Signs Temp 98 F 10/24/19 08:12 Pulse 66 10/24/19 08:12 Resp 16 10/24/19 08:12 BP 115/61 10/24/19 08:12 Pulse Ox 94 L 10/24/19 08:12 Intake & Output 10/23/19 10/24/19 10/24/19 18:59 06:59 18:59 Intake Total 725 250 Balance 725 250 Intake: Intake, IV Titration 225 Amount Sodium Chloride 0.9% 1, 225 000 ml @ 75 mls/hr IV . [id number] [facility] Rx#:[id number] Oral 500 250 Other: Voiding Method Toilet Toilet Toilet # Voids 3 2 2 - Exam PHYSICAL EXAMINATION: GENERAL: The patient is alert and oriented x3, not in any acute distress. Well developed, well nourished. HEENT: Pupils are round and equally reacting to light. EOMI. No scleral icterus. No conjunctival pallor. Normocephalic, atraumatic. No pharyngeal erythema. No thyromegaly. CARDIOVASCULAR: S1 and S2 present. No murmurs, rubs, or gallops. PULMONARY: Chest is clear to auscultation, no wheezing or crackles. ABDOMEN: Soft, nontender, nondistended, normoactive bowel sounds. No palpable organomegaly. MUSCULOSKELETAL: No joint swelling or deformity. EXTREMITIES: No cyanosis, clubbing, or pedal edema. NEUROLOGICAL: Gross neurological examination did not reveal any focal deficits. SKIN: No rashes. Note: Because of COVID 19 isolation, some of the history and physical exam findings or indirect and obtained from nursing staff, and other physician examinations to avoid unnecessary contact with the patient. - Labs CBC & Chem 7: 10/22/19 12:17 10/22/19 12:17 Labs: Abnormal Lab Results - Last 24 Hours (Table) 10/23/19 10/23/19 10/24/19 Range/Units 16:23 21:34 06:32 POC Glucose (mg/dL) 166 H 154 H 133 H (75-99) mg/dL 10/24/19 Range/Units 11:32 POC Glucose (mg/dL) 178 H (75-99) mg/dL Microbiology - Last 24 Hours (Table) 10/22/19 12:31 Blood Culture - Preliminary Blood No Growth after 24 hours Assessment and Plan Plan: Generalized body aches and chest pain: Chest pain is atypical -code 90 was ruled out and patient will undergo radical catheterization tomorrow, please refer to ALLERGY recommendations for further details -Possible gastritis or gastroesophageal reflux disease for which patient is on Protonix -Type 2 diabetes mellitus patient is resumed on his home regimen except for metformin, patient is also on sliding scale -Hyperlipidemia -History of A. fib presently rate controlled sinus rhythm on Eliquis which will be continued -Hypertension. -Obesity
[2019-10-24] MEDS ORDERED: ALPRAZolam 0.5 MG TAB PO PRN (15:02)
[2019-10-24] MEDS ORDERED: NITROGLYCERIN SL TABS 0.4 MG TAB SUBLINGUAL PRN (15:02)
[2019-10-24] MEDS ORDERED: ALPRAZolam 0.25 MG TAB PO PRN (15:02)
[2019-10-24 16:34] LABS: Glucose,Whole Blood 169 mg/dL (75-99)
[2019-10-24] MEDS: ATORVASTATIN 20 MG TAB PO SCH (16:51)
[2019-10-24 20:31] LABS: Glucose,Whole Blood 141 mg/dL (75-99)
[2019-10-25] MEDS ORDERED: ASPIRIN 325 MG TAB PO ONE (06:00)
[2019-10-25] MEDS ORDERED: SODIUM CHLORIDE 0.9% 1,000 ML in EMPTY BAG 1 BAG IV ONE (06:00)
[2019-10-25] MEDS ORDERED: ATORVASTATIN 80 MG TAB PO ONE (06:00)
[2019-10-25] MEDS: ASPIRIN 325 MG TAB PO SCH (06:05)
[2019-10-25] MEDS: METOPROLOL TARTRATE 25 MG TAB PO SCH ×2 (06:06→17:57)
[2019-10-25] MEDS: PANTOPRAZOLE 40 MG TABLET PO SCH (06:06)
[2019-10-25] MEDS: APIXABAN 5 MG TAB PO SCH (06:06)
[2019-10-25 06:11] LABS: Glucose,Whole Blood 122 mg/dL (75-99)
[2019-10-25] MEDS: INSULIN DETEMIR (LEVEMIR) 100 UNIT/ML SYR SQ SCH (06:13)
[2019-10-25] MEDS: LINAGLIPTIN 5 MG TABLET PO SCH (07:20)
[2019-10-25] MEDS: INSULIN ASPART (NovoLOG) 100 UNIT/ML VIAL SQ SCH ×4 (07:20→20:14)
[2019-10-25 11:47] LABS: Glucose,Whole Blood 181 mg/dL (75-99)
--- NOTE | 2019-10-25 12:10 | P.PN ---
Subjective Progress Note Date: 10/25/19 Principal diagnosis: Chest pain This is a very pleasant 63-year-old gentleman who sees Dr. Benitez in the office on regular basis with a past medical history significant for paroxysmal atrial fibrillation as well as diabetes presented to the hospital complaining of generalized pain associated with fever. The temperature was 101.2. The patient admitting symptoms of having "body ache". The reason we consulted to see the patient because he describes chest discomfort. He described the discomfort as sharp over the left side of the chest without any radiation to the arms or neck or shoulders and without any associated symptoms. No nausea or vomiting. No loss of consciousness or syncope. No history of coronary artery disease or congestive heart failure or cardiac arrhythmia beside the atrial fibrillation. According to him he was told by Dr. Benitez that he needs to undergo a heart catheterization but that never done. I am in process of getting a copy of the previous medical records from the office for further clarification. The EKG showed sinus rhythm with ST changes in the inferior leads. 3 sets of cardiac enzymes came in to be unremarkable. The patient was seen today 10/25/2019. He continues to have intermittent episodes of chest discomfort as well as back discomfort. He is supposed to have a heart catheterization today but unfortunately he took his oral anticoagulation. Because of that was schedule a heart catheterization to be done tomorrow morning. If the heart catheterization showed no evidence of CAD I with consider doing a CTA to rule out any aortic dissection. Objective - Vital Signs Vital signs: Vital Signs Temp 98.1 F 10/25/19 08:30 Pulse 69 10/25/19 09:00 Resp 16 10/25/19 09:00 BP 137/79 10/25/19 08:30 Pulse Ox 95 10/25/19 08:30 Intake & Output 10/24/19 10/25/19 10/25/19 18:59 06:59 18:59 Intake Total 750 Balance 750 Intake: Oral 750 Other: Voiding Method Toilet Toilet Toilet # Voids 3 1 2 - Constitutional General appearance: Present: no acute distress - Respiratory Respiratory: bilateral: CTA - Cardiovascular Rhythm: regular Heart sounds: normal: S1, S2 - Labs CBC & Chem 7: 10/22/19 12:17 10/22/19 12:17 Labs: Abnormal Lab Results - Last 24 Hours (Table) 10/24/19 10/24/19 10/25/19 Range/Units 16:33 20:29 06:10 POC Glucose (mg/dL) 169 H 141 H 122 H (75-99) mg/dL 10/25/19 Range/Units 11:45 POC Glucose (mg/dL) 181 H (75-99) mg/dL Microbiology - Last 24 Hours (Table) 10/22/19 12:31 Blood Culture - Preliminary Blood No Growth after 48 hours Assessment and Plan Assessment: Assessment #1 generalized weakness and pain #2 fever of unknown etiology #3 atypical chest pain #4 paroxysmal atrial fibrillation #5 diabetes Plan #1 consider proceeding with coronary angiogram #2 follow-up with the patient
--- NOTE | 2019-10-25 15:22 | P.PN ---
Subjective Progress Note Date: 10/25/19 Principal diagnosis: 63-year-old male with history of A. fib came in with comments of generalized body aches and fever of 101.2. Patient is being admitted to rule out acute medicinebut patient has generalized body aches going on for last 3 days along with generalized bodyaches patient also has diffuse abdominal pain chest pain some nausea. Patient has this chest pain going on for about 3 days constant moderate severity. Patient didn't have any fever here. Patient chest x-ray showing some interstitial prominence patient denied orthopnea proximal nocturnal dyspnea patient doesn't have any JVD BNP is only 63 patient had a d-dimer of 0.48 patient chest pain is pleuritic in nature chest x-ray did not show any pneumonia. COVID 19 testing was ordered and results are pending. EKG and troponins are within normal limits 10/23/2019 Patient still having some generalized body aches. Probably acute viral illness Covid 19 test was done and that was negative and was ruled out. Chest pain is atypical. Cardiology is waiting to review his previous medical records depending on that decision regarding further intervention will be made by cardiology. 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 Patient's cardiac catheterization Reports were reviewed by cardiology and they're recommending cardiac catheterization again. Constitutional: Denied any fatigue denied any fever. Cardio vascular: denied any palpitations Gastrointestinal denied any nausea vomiting Pulmonary: Denied any shortness of breath cough Neurologic denied any new focal deficits All inpatient medications were reviewed and appropriate changes in these medications as dictated in the interval history and assessment and plan. 10/25/2019 Patient is seen and evaluated and follow-up currently sitting up in the chair in no acute distress. Patient was scheduled to undergo cardiac catheterization although received Eliquis last night and this morning and cardiology following. Scheduled to undergo cardiac catheterization in the morning. Currently continues to have some midsternal chest pain that radiates to his neck and back. Patient denies any shortness of breath or palpitations. Patient is afebrile. No nausea or vomiting noted and patient is tolerating diet. Discussed with nursing staff about holding anticoagulant for procedure tomorrow. Objective - Vital Signs Vital signs: Vital Signs Temp 98.1 F 10/25/19 08:30 Pulse 69 10/25/19 09:00 Resp 16 10/25/19 09:00 BP 137/79 10/25/19 08:30 Pulse Ox 95 10/25/19 08:30 Intake & Output 10/24/19 10/25/19 10/25/19 18:59 06:59 18:59 Intake Total 750 Balance 750 Intake: Oral 750 Other: Voiding Method Toilet Toilet Toilet # Voids 3 1 2 - Exam GENERAL: The patient is alert and oriented x3, not in any acute distress. Well developed, well nourished. HEENT: Pupils are round and equally reacting to light. EOMI. No scleral icterus. No conjunctival pallor. Normocephalic, atraumatic. No pharyngeal erythema. No thyromegaly. CARDIOVASCULAR: S1 and S2 present. No murmurs, rubs, or gallops. PULMONARY: Chest is clear to auscultation, no wheezing or crackles. ABDOMEN: Soft, obese, nontender, nondistended, normoactive bowel sounds. No palpable organomegaly. MUSCULOSKELETAL: No joint swelling or deformity. EXTREMITIES: No cyanosis, clubbing, or pedal edema. NEUROLOGICAL: Gross neurological examination did not reveal any focal deficits. SKIN: No rashes. - Labs CBC & Chem 7: 10/22/19 12:17 10/22/19 12:17 Labs: Abnormal Lab Results - Last 24 Hours (Table) 10/24/19 10/24/19 10/24/19 Range/Units 11:32 16:33 20:29 POC Glucose (mg/dL) 178 H 169 H 141 H (75-99) mg/dL 10/25/19 Range/Units 06:10 POC Glucose (mg/dL) 122 H (75-99) mg/dL Microbiology - Last 24 Hours (Table) 10/22/19 12:31 Blood Culture - Preliminary Blood No Growth after 48 hours Assessment and Plan Assessment: -Generalized body aches and chest pain: Chest pain is atypical -Covid 19 was ruled out and patient will undergo cardiac catheterization tomorrow, cardiology following -Possible gastritis or gastroesophageal reflux disease for which patient is on Protonix -Type 2 diabetes mellitus patient is resumed on his home regimen except for metformin, patient is also on sliding scale -Hyperlipidemia -History of A. fib presently rate controlled sinus rhythm on Eliquis which will be continued, Eliquis being placed on hold her cardiac catheterization tomorrow -Hypertension -Obesity
[2019-10-25 16:39] LABS: Glucose,Whole Blood 157 mg/dL (75-99)
[2019-10-25] MEDS: ATORVASTATIN 20 MG TAB PO SCH (17:57)
[2019-10-25 20:12] LABS: Glucose,Whole Blood 148 mg/dL (75-99)
[2019-10-25] MEDS: CYCLOBENZAPRINE 10 MG TAB PO PRN (20:30)
[2019-10-26] MEDS: SODIUM CHLORIDE 0.9% 1,000 ML IV SCH ×3 (00:37→12:52)
[2019-10-26 06:22] LABS: Glucose,Whole Blood 130 mg/dL (75-99)
[2019-10-26] MEDS: ASPIRIN 325 MG TAB PO SCH (07:06)
[2019-10-26] MEDS ORDERED: IV FLUID CONTINUATION 650 ML IV ONE (07:22)
[2019-10-26] MEDS ORDERED: LIDOCAINE 1% INJ 10MG/ML (20 ML MDV) ONE (07:30)
[2019-10-26] MEDS ORDERED: VERAPAMIL 2.5 MG/ML 2 ML AMP ONE (07:30)
[2019-10-26] MEDS ORDERED: HEPARIN SODIUM 1,000 UN/ML (10ML VL) ONE (07:30)
[2019-10-26] MEDS ORDERED: fentaNYL (PF) 50 MCG/ML 2 ML AMP ONE (07:30)
[2019-10-26] MEDS ORDERED: fentaNYL (PF) 50 MCG/ML 2 ML AMP IV ONE (07:44)
[2019-10-26] MEDS ORDERED: MIDAZOLAM 2 MG/2 ML VIAL IV ONE (07:45)
[2019-10-26] MEDS ORDERED: LIDOCAINE 1% INJ 10MG/ML (20 ML MDV) SQ ONE (07:47)
[2019-10-26] MEDS: VERAPAMIL SYRINGE (5 MG/10 ML) INTRAARTER ONE ×2 (07:58→08:13)
[2019-10-26] MEDS ORDERED: HEPARIN SODIUM 1,000 UN/ML (10ML VL) IV ONE (08:00)
[2019-10-26] MEDS ORDERED: IOPAMIDOL-370 100ML BTL INJ ONE (08:09)
[2019-10-26] MEDS ORDERED: IOPAMIDOL-370 50ML BTL INJ ONE (08:13)
[2019-10-26] MEDS ORDERED: RX INFO: IV CONTRAST WAS GIVEN 1 EACH MISC MISCELLANE PRN (08:22)
[2019-10-26] MEDS ORDERED: SODIUM CHLORIDE 0.9% 1,000 ML IV SCH (08:30)
--- NOTE | 2019-10-26 08:30 | P.CARDCATH ---
Date of Procedure: 10/26/19 Preoperative Diagnosis: Chest pain, rule out coronary artery disease ,multiple risk factors Postoperative Diagnosis: Normal coronary arteries. Normal LV end-diastolic pressure. Big and uncoiled aorta Procedure(s) Performed: Left heart catheterization with aortic root injection with no left ventriculography Description of Procedure: HISTORY: This is a 64-year-old gentleman with history of hypertension, diabetes and also atrial fibrillation was admitted to the hospital with chest pains. His cardiac enzymes are negative. However because of risk factors and chest pain, a cardiac catheterization is requested. Patient was evaluated by Dr. Singh CONSENT:We have discussed the risks, benefits and alternative therapies for the above-mentioned procedure and for both sedation/analgesia as well as necessary blood product administration, if indicated, as they pertain to this patient. The patient has indicated understanding and acceptance of the risks and procedures discussed. [] PROCEDURE: Patient was brought to the lab in a fasting state. Patient was given some IV sedation. The right groin is infiltrated with lidocaine and right femoral artery was entered using Seldinger technique. A 6-Yakut catheter was left in place and selective coronary arteriography and aortic root injection was performed. Patient tolerated the procedure well. TR band was applied for hemostasis. No immediate complications were noted and patient was transferred to [facility] in a stable condition Conscious Sedation: Versed 1mg Fentanyl 50 g Duration 29minutes HEMODYNAMICS: The aortic pressure is 140/70. Left ventricular end-diastolic pressure is about 12. There was no gradient across the aortic valve SELECTIVE CORONARY ARTERIOGRAPHY: LEFT MAIN: This is normal in length and free of any occlusive disease THE LEFT ANTERIOR DESCENDING CORONARY ARTERY:. This is a good caliber vessel giving rise to several diagonal and septal branches. Free of any occlusive disease THE LEFT CIRCUMFLEX AND IS CORONARY ARTERY:. This is a nondominant vessel is a small OM branch and PLV branch. Free of occlusive disease THE RIGHT CORONARY ARTERY:. This is a dominant vessel giving rise to PDA and PLV. Free of occlusive disease LEFT VENTRICULOGRAPHY:. Not performed. Aortic root injection: This revealed aortic valve appeared generally big probably related to his body habitus. No aortic regurgitation. Uncoiled aorta. No evidence of dissection FINAL IMPRESSION: Normal coronary arteries. Normal end-diastolic pressure PLAN: Maximum medical therapy and this factor modification PROGNOSIS: Fair
[2019-10-26 10:54] VITALS: TEMP 97.9
--- NOTE | 2019-10-26 11:15 | P.PN ---
Subjective Progress Note Date: 10/26/19 Principal diagnosis: Chest pain This is a very pleasant 63-year-old gentleman who sees Dr. Benitez in the office on regular basis with a past medical history significant for paroxysmal atrial fibrillation as well as diabetes presented to the hospital complaining of generalized pain associated with fever. The temperature was 101.2. The patient admitting symptoms of having "body ache". The reason we consulted to see the patient because he describes chest discomfort. He described the discomfort as sharp over the left side of the chest without any radiation to the arms or neck or shoulders and without any associated symptoms. No nausea or vomiting. No loss of consciousness or syncope. No history of coronary artery disease or congestive heart failure or cardiac arrhythmia beside the atrial fibrillation. According to him he was told by Dr. eBnitez that he needs to undergo a heart catheterization but that never done. I am in process of getting a copy of the previous medical records from the office for further clarification. The EKG showed sinus rhythm with ST changes in the inferior leads. 3 sets of cardiac enzymes came in to be unremarkable. The patient was seen today October [id number]. He underwent a heart catheterization earlier today by Dr. Benitez and that showed mild nonobstructive coronary artery disease. From the cardiovascular standpoint overview, the patient possibly can be discharged home if he continues to be chest pain-free. Objective - Vital Signs Vital signs: Vital Signs Temp 97.9 F 10/26/19 09:00 Pulse 68 10/26/19 10:07 Resp 18 10/26/19 10:07 BP 127/70 10/26/19 10:07 Pulse Ox 95 10/26/19 10:07 Intake & Output 10/25/19 10/26/19 10/26/19 18:59 06:59 18:59 Intake Total 476 200 100 Output Total 505 230 Balance 476 -305 -130 Intake: IV 100 Oral 476 200 Output: Urine 505 230 Other: Voiding Method Toilet Toilet Toilet # Voids 4 1 1 # Bowel Movements 1 - Constitutional General appearance: Present: no acute distress - Respiratory Respiratory: bilateral: CTA - Cardiovascular Rhythm: regular Heart sounds: normal: S1, S2 - Labs CBC & Chem 7: 10/22/19 12:17 10/22/19 12:17 Labs: Abnormal Lab Results - Last 24 Hours (Table) 10/25/19 10/25/19 10/25/19 Range/Units 11:45 16:38 20:10 POC Glucose (mg/dL) 181 H 157 H 148 H (75-99) mg/dL 10/26/19 Range/Units 06:21 POC Glucose (mg/dL) 130 H (75-99) mg/dL Microbiology - Last 24 Hours (Table) 10/22/19 12:31 Blood Culture - Preliminary Blood No Growth after 72 hours Assessment and Plan Assessment: Assessment #1 generalized weakness and pain #2 fever of unknown etiology #3 atypical chest pain #4 paroxysmal atrial fibrillation #5 diabetes Plan #1 the heart catheterization showed mild CAD #2 the patient can be discharged home
[2019-10-26 12:23] LABS: Glucose,Whole Blood 143 mg/dL (75-99)
[2019-10-26] MEDS: INSULIN DETEMIR (LEVEMIR) 100 UNIT/ML SYR SQ SCH (12:47)
[2019-10-26] MEDS: INSULIN ASPART (NovoLOG) 100 UNIT/ML VIAL SQ SCH ×2 (12:48→12:51)
[2019-10-26] MEDS: PANTOPRAZOLE 40 MG TABLET PO SCH (12:48)
[2019-10-26] MEDS: METOPROLOL TARTRATE 25 MG TAB PO SCH (12:53)
[2019-10-26] MEDS: LINAGLIPTIN 5 MG TABLET PO SCH (12:54)
[2019-10-26 12:57] VITALS: BP 99/57; PULSE 62; RESP 18
--- NOTE | 2019-10-26 15:52 | P.DS ---
Providers Date of admission: 10/24/19 11:07 Expected date of discharge: 10/26/19 Attending physician: Jaleesa Cordova Consults: 10/22/19 13:51 Consult Physician Urgent Consulting Provider: Ramsey Benitez Consult Reason/Comments: Chest pain Do you want consulting provider notified?: Yes Primary care physician: [facility] Hospital Course: Final diagnosis -Generalized body aches and chest pain: Chest pain is atypical -Covid 19 was ruled out -Possible gastritis or gastroesophageal reflux disease -Type 2 diabetes mellitus -Hyperlipidemia -History of A. fib presently rate controlled -Hypertension -Obesity Discharge disposition Patient is being discharged in a stable condition with guarded prognosis to home. Patient will follow-up with cardiology in the outpatient setting upon discharge. Patient will also follow-up with [facility] upon discharge. Total time taken is greater than 35 minutes. History of present illness This is a 64-year-old male who was recently admitted with generalized body aches and a fever along with some chest pain and was being closely monitored. Patient was seen and evaluated by cardiology recommended cardiac catheterization. Cardiac cath was done today and was cleared by cardiology. Patient will follow- up with them in the outpatient setting. Patient also had Covid 19 testing which was negative. She continue to have some back pain and chest pain which was pleuritic and will be following with his primary care provider in the outpatient setting. Patient may need pain management in the outpatient setting as well. Currently no reports of chest pain, shortness of breath, or palpitations. Patient is afebrile. No reports of nausea or vomiting and patient is tolerating diet. Patient will be discharged home today. On exam vital signs are stable. Temp is 97.9F, pulse is 62, respirations are 18, blood pressure is 99/57, oxygen saturation is 94-95% on room air. Cardio S1, S2 are muffled. Respiratory system shows diminished breath sounds at the bases with no wheezing or rhonchi noted. Abdomen is soft and obese, and nontender. Nervous system shows no focal deficits. Please refer to medication reconciliation sheet for a list of medications. Patient Condition at Discharge: Fair Plan - Discharge Summary Discharge Rx Participant: Yes New Discharge Prescriptions: Femi Pantoprazole [Protonix] 40 mg PO AC-BRKFST 30 Days #30 tablet. traMADol HCL [Ultram] 50 mg PO Q6HR PRN 3 Days #12 tab PRN Reason: Pain Continue Metoprolol Tartrate [Lopressor] 25 mg PO BID@0800,1800 Cyclobenzaprine [Flexeril] 10 mg PO HS PRN PRN Reason: Pain Nitroglycerin Sl Tabs [Nitrostat] 0.4 mg SL Q5M PRN PRN Reason: Chest Pain metFORMIN HCL 1,000 mg PO BID@0800,1800 Insulin Glargine,Hum.rec.anlog [Lantus Solostar] 55 unit SQ DAILY Omeprazole 20 mg PO DAILY Apixaban [Eliquis] 5 mg PO BID@0800,1800 Alogliptin Benzoate [Alogliptin] 25 mg PO DAILY Aspirin EC [Ecotrin Low Dose] 81 mg PO DAILY Atorvastatin [Lipitor] 20 mg PO DAILY@1800 Insulin Aspart [NovoLOG Flexpen] See Protocol SQ AC-TID Multivitamins, Thera [Multivitamin (formulary)] 1 tab PO DAILY Lidocaine 5% Patch [Lidoderm 5% Patch] 1 patch TOPICAL DAILY PRN PRN Reason: Pain Discontinued hydroCHLOROthiazide [Hydrodiuril] 25 mg PO DAILY Discharge Medication List Cyclobenzaprine [Flexeril] 10 mg PO HS PRN 01/16/14 [History] Metoprolol Tartrate [Lopressor] 25 mg PO BID@0800,1800 01/16/14 [History] Nitroglycerin Sl Tabs [Nitrostat] 0.4 mg SL Q5M PRN 01/16/14 [History] Insulin Glargine,Hum.rec.anlog [Lantus Solostar] 55 unit SQ DAILY 02/11/17 [History] metFORMIN HCL 1,000 mg PO BID@0800,1800 02/11/17 [History] Alogliptin Benzoate [Alogliptin] 25 mg PO DAILY 10/22/19 [History] Apixaban [Eliquis] 5 mg PO BID@0800,1800 10/22/19 [History] Aspirin EC [Ecotrin Low Dose] 81 mg PO DAILY 10/22/19 [History] Atorvastatin [Lipitor] 20 mg PO DAILY@1800 10/22/19 [History] Insulin Aspart [NovoLOG Flexpen] See Protocol SQ AC-TID 10/22/19 [History] Lidocaine 5% Patch [Lidoderm 5% Patch] 1 patch TOPICAL DAILY PRN 10/22/19 [History] Multivitamins, Thera [Multivitamin (formulary)] 1 tab PO DAILY 10/22/19 [History] Omeprazole 20 mg PO DAILY 10/22/19 [History] Pantoprazole [Protonix] 40 mg PO AC-BRKFST 30 Days #30 tablet. 10/26/19 [Rx] traMADol HCL [Ultram] 50 mg PO Q6HR PRN 3 Days #12 tab 10/26/19 [Rx] Follow up Appointment(s)/Referral(s): Ramsey Benitez MD [STAFF PHYSICIAN] - 11/06/19 11:[address] [facility],Clinic [Primary Care Provider] - 3 Days Patient Instructions/Handouts: Chest Pain (DC), After Radial Heart Catheterization (GEN) Activity/Diet/Wound Care/Special Instructions: Contact CM at dc if indigent funds needed Activity Limited until follow-up Follow-up with primary care provider upon discharge Continue with aspirin daily Continue with Protonix daily Continue to monitor blood sugars before meals at bedtime and keep a diary for primary care follow-up Continue with heart healthy consistent carb diet Discharge Disposition: HOME SELF-CARE
[2019-10-26] MEDS ORDERED: APIXABAN 5 MG TAB PO SCH (18:00)
== END 2019-10-26 15:47 | disposition home or self-care (01) | DRG 287 ==
LOC: EC 12:03 → 3NCARDOBS 13:51 → OBSVTOIN 10-24 11:07
PROVIDERS: ADMIT Internal Medicine; ATTEND Internal Medicine
PROC: 4A023N7 Measurement of Cardiac Sampling and Pressure, Left Heart, Percutaneous Approach (ICD-10-PCS; principal; 2019-10-26 07:30)
PROC: B2111ZZ Fluoroscopy of Multiple Coronary Arteries using Low Osmolar Contrast (ICD-10-PCS; principal; 2019-10-26 07:30)
DX: R07.89 Other chest pain (principal); Z68.43 Body mass index [BMI] 50.0-59.9, adult; I25.10 Atherosclerotic heart disease of native coronary artery without angina pectoris; E11.40 Type 2 diabetes mellitus with diabetic neuropathy, unspecified; E66.9 Obesity, unspecified; E78.5 Hyperlipidemia, unspecified; I10 Essential (primary) hypertension; I48.0 Paroxysmal atrial fibrillation; Z20.828 Contact with and (suspected) exposure to other viral communicable diseases; G43.909 Migraine, unspecified, not intractable, without status migrainosus; M54.9 Dorsalgia, unspecified; K29.70 Gastritis, unspecified, without bleeding; K21.9 Gastro-esophageal reflux disease without esophagitis; B34.9 Viral infection, unspecified; Z79.01 Long term (current) use of anticoagulants; Z79.82 Long term (current) use of aspirin; Z79.899 Other long term (current) drug therapy; Z79.4 Long term (current) use of insulin; Z87.891 Personal history of nicotine dependence; Z98.1 Arthrodesis status; Z90.49 Acquired absence of other specified parts of digestive tract; Z88.8 Allergy status to other drugs, medicaments and biological substances
CPT/HCPCS: 36415; 71046; 80053; 80061; 82550; 83735; 83880; 84484; 85025; 85379; 85610; 85730; 87040; 93005; 93306; 93458; 99285

== ENCOUNTER 2020-06-29 04:07 | Observation (INO) | payer OTHER, MEDICARE ==
[2020-06-29] MEDS ORDERED: MORPHINE SULFATE 4 MG/ML SYRINGE IV STA (04:15)
[2020-06-29] MEDS ORDERED: SODIUM CHLORIDE 0.9% 1,000 ML IV STA (04:15)
--- NOTE | 2020-06-29 04:21 | ED ---
Chest Pain HPI - General Chief Complaint: Chest Pain Stated Complaint: ABD pain,Chest Pain Time Seen by Provider: 06/29/20 04:10 Source: patient, RN notes reviewed, old records reviewed Mode of arrival: ambulatory Limitations: no limitations - History of Present Illness Initial Comments: This is a 64-year-old male DF for evaluation patient has history of A. fib diabetes high blood pressure high cholesterol coming with left-sided chest pain left shoulder. Patient has persistent chest pain here in the ER. No real other symptoms. No fevers no shortness of breath. MD Complaint: chest pain -: days(s) Onset: during rest, during exertion Pain Location: left chest Pain Radiation: LUE Severity: moderate Severity scale (1-10): 4 Quality: sharp Consistency: intermittent Improves With: nothing Worsens With: nothing Anginal Symptoms: dyspnea Other Symptoms: palpitations Treatments Prior to Arrival: none - Related Data Home Medications Medication Instructions Recorded Confirmed Cyclobenzaprine [Flexeril] 10 mg PO HS PRN 01/16/14 06/29/20 Metoprolol Tartrate [Lopressor] 25 mg PO BID@0800,1800 01/16/14 06/29/20 Nitroglycerin Sl Tabs [Nitrostat] 0.4 mg SL Q5M PRN 01/16/14 06/29/20 Insulin Glargine,Hum.rec.anlog 55 unit SQ DAILY 02/11/17 06/29/20 [Lantus Solostar] metFORMIN HCL 1,000 mg PO BID@0800,1800 02/11/17 06/29/20 Apixaban [Eliquis] 5 mg PO BID@0800,1800 10/22/19 06/29/20 Aspirin EC [Ecotrin Low Dose] 81 mg PO DAILY 10/22/19 06/29/20 Atorvastatin [Lipitor] 20 mg PO DAILY@1800 10/22/19 06/29/20 Insulin Aspart [NovoLOG Flexpen] See Protocol SQ AC-TID 10/22/19 06/29/20 Omeprazole 20 mg PO DAILY 10/22/19 06/29/20 Empagliflozin [Jardiance] 10 mg PO DAILY@0800 06/29/20 06/29/20 Spironolactone 25 mg PO DAILY@0800 06/29/20 06/29/20 Allergies Allergy/AdvReac Type Severity Reaction Status Date / Time meclizine [From Antivert] Allergy Hallucinati Verified 06/29/20 08:09 ons Review of Systems ROS Statement: Those systems with pertinent positive or pertinent negative responses have been documented in the HPI. ROS Other: All systems not noted in ROS Statement are negative. EKG Findings - EKG Comments: EKG Findings:: EKG is sinus rhythm 76 KS 162 QRS 82 QTC 434 Past Medical History Past Medical History: Atrial Fibrillation, Diabetes Mellitus, Hyperlipidemia, Hypertension Additional Past Medical History / Comment(s): MIGRAINES, AFIB, Neuropathy History of Any Multi-Drug Resistant Organisms: None Reported Past Surgical History: Appendectomy Additional Past Surgical History / Comment(s): SPINE FUSION, Cyst removal from leg Past Anesthesia/Blood Transfusion Reactions: No Reported Reaction Past Psychological History: No Psychological Hx Reported Smoking Status: Former smoker Past Alcohol Use History: None Reported Past Drug Use History: None Reported - Past Family History Father Additional Family Medical History / Comment(s): in 1978 of [place] and stroke. Mother Family Medical History: Congestive Heart Failure (CHF), Diabetes Mellitus Additional Family Medical History / Comment(s): uterine cancer. at age 87. General Exam Limitations: no limitations General appearance: alert, in no apparent distress Head exam: Present: atraumatic, normocephalic, normal inspection Eye exam: Present: normal appearance, PERRL, EOMI. Absent: scleral icterus, conjunctival injection, periorbital swelling ENT exam: Present: normal exam, mucous membranes moist Neck exam: Present: normal inspection. Absent: tenderness, meningismus, lymphadenopathy Respiratory exam: Present: normal lung sounds bilaterally. Absent: respiratory distress, wheezes, rales, rhonchi, stridor Cardiovascular Exam: Present: regular rate, normal rhythm, normal heart sounds. Absent: systolic murmur, diastolic murmur, rubs, gallop, clicks GI/Abdominal exam: Present: soft, normal bowel sounds. Absent: distended, tenderness, guarding, rebound, rigid Extremities exam: Present: normal inspection, full ROM, normal capillary refill. Absent: tenderness, pedal edema, joint swelling, calf tenderness Back exam: Present: normal inspection Neurological exam: Present: alert, oriented X3, CN II-XII intact Psychiatric exam: Present: normal affect, normal mood Skin exam: Present: warm, dry, intact, normal color. Absent: rash Course Vital Signs 06/29/20 06/29/20 06/29/20 04:10 06:10 09:44 Temperature 98 F Pulse Rate 78 73 76 Respiratory 18 18 19 Rate Blood Pressure 154/88 156/80 153/97 O2 Sat by Pulse 93 L 96 95 Oximetry 06/29/20 06/29/20 06/29/20 10:00 14:56 16:56 Temperature Pulse Rate 70 78 Respiratory 20 Rate Blood Pressure 138/83 138/87 129/71 O2 Sat by Pulse 96 Oximetry 06/29/20 19:56 Temperature Pulse Rate 58 L Respiratory 20 Rate Blood Pressure 127/65 O2 Sat by Pulse 96 Oximetry - Reevaluation(s) Reevaluation #1: Medical record is reviewed Symptoms improved here in the ER Patient informed of results and questions answered Chest Pain MDM - MDM 64 male DF for evaluation patient presents today for evaluation of chest pain. Patient be admitted under cardiac observation for persistent chest pain with significant medical risk Disposition Clinical Impression: Chest pain, Atypical chest pain Disposition: ADMITTED IP TO THIS [facility] Condition: Stable Is patient prescribed a controlled substance at d/c from ED?: No
[2020-06-29 04:40] LABS: Basophils # (A) 0.1 k/uL (0-0.2); Basophils % (A) 0 %; Eosinophils # (A) 0.2 k/uL (0-0.7); Eosinophils % (A) 2 %; HCT 44.1 % (39.0-53.0); HGB 15.1 gm/dL (13.0-17.5); Lymphocytes # (A) 3.9 k/uL (1.0-4.8); Lymphocytes % (A) 32 %; MCH 29.1 pg (25.0-35.0); MCHC 34.2 g/dL (31.0-37.0); MCV 85.1 fL (80.0-100.0); Mean Platelet Volume 7.8; Monocytes # (A) 0.6 k/uL (0-1.0); Monocytes % (A) 5 %; Neutrophils # (A) 7.1 k/uL (1.3-7.7); Neutrophils % (A) 59 %; Platelet Count 173 k/uL (150-450); RBC 5.19 m/uL (4.30-5.90); RDW 14.4 % (11.5-15.5); WBC 12.2 k/uL (3.8-10.6)
[2020-06-29 04:52] LABS: ALT 14 U/L (4-49); AST 14 U/L (17-59); African American GFR (CKD) >90 (>60 ml/min/1.73 sqM); Albumin 3.9 g/dL (3.5-5.0); Alkaline Phosphatase 119 U/L (38-126); Anion Gap 7 mmol/L; Blood Urea Nitrogen 17 mg/dL (9-20); C Reactive Protein 5.1 mg/dL (<1.0); Calcium 9.3 mg/dL (8.4-10.2); Carbon Dioxide 30 mmol/L (22-30); Chloride 101 mmol/L (98-107); Creatine Kinase 47 U/L (55-170); Glucose 245 mg/dL (74-99); LDH 392 U/L (313-618); Lipase 82 U/L (23-300); Magnesium 2.1 mg/dL (1.6-2.3); Non-African American GFR(CKD) >90 (>60 ml/min/1.73 sqM); Phosphorus 3.6 mg/dL (2.5-4.5); Potassium 4.3 mmol/L (3.5-5.1); Sodium 138 mmol/L (137-145); Total Bilirubin 0.4 mg/dL (0.2-1.3); Total Protein 6.8 g/dL (6.3-8.2)
[2020-06-29 04:55] LABS: D-Dimer 0.35 mg/L FEU (<0.60); INR 0.9 (<1.2); Partial Thromboplastin Time 23.5 sec (22.0-30.0)
[2020-06-29] MEDS ORDERED: MORPHINE SULFATE 4 MG/ML SYRINGE IVP STA (06:05)
--- NOTE | 2020-06-29 06:09 | XR ---
EXAM: XR Chest, 2 Views CLINICAL HISTORY: ITS.REASON XR Reason: cp TECHNIQUE: Frontal and lateral views of the chest. COMPARISON: CXR October 22, 2019. FINDINGS/IMPRESSION: Low lung volumes,, secondary to poor respiratory effort, which accentuate bronchovascular markings. No lobar infiltration/pneumonia. No pneumothorax or pleural effusion. Cardiomegaly. Calcified aorta.
[2020-06-29] MEDS ORDERED: NITROGLYCERIN SL TABS 0.4 MG TAB SUBLINGUAL PRN ×2 (06:37→16:08)
[2020-06-29] MEDS: MORPHINE SULFATE 4 MG/ML SYRINGE IV PRN ×3 (09:44→23:26)
--- NOTE | 2020-06-29 15:01 | P.CRDCN ---
History of Present Illness History of present illness: HISTORY OF PRESENTING ILLNESS Patient is a pleasant 64-year-old male with history of paroxysmal atrial fibrillation, morbid obesity, hypertension, hyperlipidemia, diabetes mellitus type 2 and frequent Chest pains who presents secondary to chest pain. Patient Casandra normally has had chest pains in the past however this felt different. He states over the last 3-4 days he has noticed left-sided pain to his lateral chest wall which then radiated down to his substernal, epigastric area. He denies any associated nausea, diaphoresis, shortness breath. He admits it feels better when he lays on his left side and worse if he lays on his right. He admits it is reproducible with palpation. It is not associated with any exertion. He had heart catheterization 10/26/2019 which showed normal coronary arteries. He follows with Dr. Benitez. Currently he admits the pain is somewhat better as he did take some nitroglycerin and some Tylenol. He had workup in the ER with EKG showing normal sinus rhythm, no significant ST or T wave abnormalities. Blood work showed white blood cell 12.2, hemoglobin 15.1, d-dimer 0.35, creatinine 0.68, troponin normal 3. He did take the [employer] vaccination a few weeks ago and is wondering if it could be from this. He denies any recent falls or trauma. REVIEW OF SYSTEMS At the time of my exam: CONSTITUTIONAL: Denies fever or chills. CARDIOVASCULAR: +chest pain, no shortness of breath, orthopnea, PND or palpitations. RESPIRATORY: Denies cough. GASTROINTESTINAL: Denies abdominal pain, diarrhea, constipation, nausea or vomiting. MUSCULOSKELETAL: Denies myalgias. NEUROLOGIC: Denies numbness, tingling or weakness. ENDOCRINE: Denies fatigue, weight change, polydipsia or polyurina. GENITOURINARY: Denies burning, hematuria or urgency with micturation. HEMATOLOGIC: Denies history of anemia or bleeding. PHYSICAL EXAMINATION Vital signs reviewed. CONSTITUTIONAL: No apparent distress, greatly obese, 1+ lower extremity edema which is chronic per patient HEENT: Head is normocephalic. Pupils are equal, round. Sclerae anicteric. Mucous membranes of the mouth are moist. No JVD. No carotid bruit. CHEST EXAMINATION: Lungs are clear to auscultation. No chest wall tenderness is noted on palpation or with deep breathing. HEART EXAMINATION: Regular rate and rhythm. S1, S2 heard. No murmurs, gallops or rub. ABDOMEN: Soft, nontender. Positive bowel sounds. EXTREMITIES: 2+ peripheral pulses, no lower extremity edema and no calf te nderness. NEUROLOGIC EXAMINATION: Patient is awake, alert and oriented x3. ASSESSMENT 1. Atypical, reproducible chest pain, do not suspect acute coronary syndrome or cardiac source 2. History of normal coronary arteries by heart catheterization 10/2019 3. Morbid obesity 4. Hypertension 5. Diabetes mellitus type 2 6. Hyperlipidemia PLAN Chest pain is reproducible and worse with movements and is not cardiac in nature. Patient had normal heart catheterization 10/2019. Troponins normal. No further workup as an inpatient from a cardiology standpoint. Follow-up with Dr. Benitez in 1 week. Past Medical History Past Medical History: Atrial Fibrillation, Diabetes Mellitus, Hyperlipidemia, Hypertension Additional Past Medical History / Comment(s): MIGRAINES, AFIB, Neuropathy History of Any Multi-Drug Resistant Organisms: None Reported Past Surgical History: Appendectomy Additional Past Surgical History / Comment(s): SPINE FUSION, Cyst removal from leg Past Anesthesia/Blood Transfusion Reactions: No Reported Reaction Past Psychological History: No Psychological Hx Reported Smoking Status: Former smoker Past Alcohol Use History: None Reported Past Drug Use History: None Reported Medications and Allergies Home Medications Medication Instructions Recorded Confirmed Type Cyclobenzaprine [Flexeril] 10 mg PO HS PRN 01/16/14 06/29/20 History Metoprolol Tartrate [Lopressor] 25 mg PO BID@0800,1800 01/16/14 06/29/20 History Nitroglycerin Sl Tabs [Nitrostat] 0.4 mg SL Q5M PRN 01/16/14 06/29/20 History Insulin Glargine,Hum.rec.anlog 55 unit SQ DAILY 02/11/17 06/29/20 History [Lantus Solostar] metFORMIN HCL 1,000 mg PO BID@0800,1800 02/11/17 06/29/20 History Apixaban [Eliquis] 5 mg PO BID@0800,1800 10/22/19 06/29/20 History Aspirin EC [Ecotrin Low Dose] 81 mg PO DAILY 10/22/19 06/29/20 History Atorvastatin [Lipitor] 20 mg PO DAILY@1800 10/22/19 06/29/20 History Insulin Aspart [NovoLOG Flexpen] See Protocol SQ AC-TID 10/22/19 06/29/20 Hi story Omeprazole 20 mg PO DAILY 10/22/19 06/29/20 History Empagliflozin [Jardiance] 10 mg PO DAILY@0800 06/29/20 06/29/20 History Spironolactone 25 mg PO DAILY@0800 06/29/20 06/29/20 History Allergies Allergy/AdvReac Type Severity Reaction Status Date / Time meclizine [From Antivert] Allergy Hallucinati Verified 06/29/20 08:09 ons Physical Exam Vitals: Vital Signs Temp Pulse Resp BP Pulse Ox 06/29/20 14:56 138/87 06/29/20 10:00 70 138/83 06/29/20 09:44 76 19 153/97 95 06/29/20 06:10 73 18 156/80 96 06/29/20 04:10 98 F 78 18 154/88 93 L Intake and Output 06/28/20 06/29/20 06/29/20 22:59 06:59 14:59 Other: Weight 177.355 kg Results 06/29/20 04:27 06/29/20 04:27 Cardiac Enzymes 06/29/20 06/29/20 06/29/20 Range/Units 04:27 04:27 09:17 AST 14 L (17-59) U/L Lactate Dehydrogenase 392 (313-618) U/L Troponin I <0.012 <0.012 (0.000-0.034) ng/mL 06/29/20 Range/Units 12:00 AST (17-59) U/L Lactate Dehydrogenase (313-618) U/L Troponin I <0.012 (0.000-0.034) ng/mL Coagulation 06/29/20 Range/Units 04:27 PT 10.0 (9.0-12.0) sec APTT 23.5 (22.0-30.0) sec CBC 06/29/20 Range/Units 04:27 WBC 12.2 H (3.8-10.6) k/uL RBC 5.19 (4.30-5.90) m/uL Hgb 15.1 (13.0-17.5) gm/dL Hct 44.1 (39.0-53.0) % Plt Count 173 (150-450) k/uL Comprehensive Metabolic Panel 06/29/20 Range/Units 04:27 Sodium 138 (137-145) mmol/L Potassium 4.3 (3.5-5.1) mmol/L Chloride 101 (98-107) mmol/L Carbon Dioxide 30 (22-30) mmol/L BUN 17 (9-20) mg/dL Creatinine 0.68 (0.66-1.25) mg/dL Glucose 245 H (74-99) mg/dL Calcium 9.3 (8.4-10.2) mg/dL AST 14 L (17-59) U/L ALT 14 (4-49) U/L Alkaline Phosphatase 119 (38-126) U/L Total Protein 6.8 (6.3-8.2) g/dL Albumin 3.9 (3.5-5.0) g/dL Current Medications Generic Name Dose Route Start Last Admin Trade Name Freq PRN Reason Stop Dose Admin Morphine Sulfate 4 mg 06/29/20 06:37 06/29/20 14:55 Morphine Sulfate 4 Mg/Ml Syringe IV 4 mg Q4HR PRN Administration Chest Pain Nitroglycerin 0.4 mg 06/29/20 06:37 Nitroglycerin Sl Tabs 0.4 Mg Tab SUBLINGUAL Q5M PRN Chest Pain Intake and Output 06/28/20 06/29/20 06/29/20 22:59 06:59 14:59 Other: Weight 177.355 kg 06/29/20 04:27 06/29/20 04:27
[2020-06-29] MEDS ORDERED: CYCLOBENZAPRINE 10 MG TAB PO PRN (16:08)
--- NOTE | 2020-06-29 16:12 | P.HPIM ---
History of Present Illness H&P Date: 06/29/20 Chief Complaint: Chest pain Mr. Rueda is a 64-year-old male with a past medical history of morbid obesity, atrial fibrillation, hypertension, hyperlipidemia, type 2 diabetes mellitus coming into the hospital with a chief complaint of chest pain. Patient states that he has been having chest pain mostly in the left side of the chest that has been radiating to the substernal area and epigastric area. Patient denies having any relationship of this chest pain with food. He states that when he presses on his epigastric area his chest pain is more. He denies having any na usea vomiting or diarrhea. No abdominal pain. He denies having any dysuria or hematuria. Patient denies having any fever chills or rigors. He states that he has chronic lower extremity swelling. He mentions about his recent change in his medications he was started on Spirinolactone and Empagiflozin recently. Patient states that he had a fall from 12 feet height, 10 years back and had back surgery and since then has been on disability. But he is able to do his yard work by himself. Patient denies having any exertional dyspnea. No recent travel. In the ER at the time of admission his vitals are temperature 90.8, heart rate 78, respiratory rate 18, blood pressure 154/88, saturating 93% on room air. He had an EKG and chest x-ray done showing no acute abnormalities. Labs reviewed showing white count of 12.2, hemoglobin 15.1, platelets 173. D-dimer 0.35. Sodium 138, potassium 4.3, chloride 101, bicarb 30, BUN/creatinine 17, creatinine 0.68. He had 3 troponins that are less than 0.012. Melissa virus PCR negative. Review of Systems CONSTITUTIONAL: No fever, no malaise, no fatigue. HEENT: No recent visual problems or hearing problems. Denied any sore throat. CARDIOVASCULAR: as per HPI PULMONARY: No shortness of breath, no cough, no hemoptysis. GASTROINTESTINAL: No diarrhea, no nausea, no vomiting. Normoactive bowel sounds. NEUROLOGICAL: No headaches, no weakness, no numbness. HEMATOLOGICAL: Denies any bleeding or petechiae. GENITOURINARY: Denies any burning micturition, frequency, or urgency. MUSCULOSKELETAL/RHEUMATOLOGICAL: Denies any joint pain, swelling, or any muscle pain. ENDOCRINE: Denies any polyuria or polydipsia. Past Medical History Past Medical History: Atrial Fibrillation, Diabetes Mellitus, Hyperlipidemia, Hypertension Additional Past Medical History / Comment(s): MIGRAINES, AFIB, Neuropathy History of Any Multi-Drug Resistant Organisms: None Reported Past Surgical History: Appendectomy Additional Past Surgical History / Comment(s): SPINE FUSION, Cyst removal from leg Past Anesthesia/Blood Transfusion Reactions: No Reported Reaction Past Psychological History: No Psychological Hx Reported Smoking Status: Former smoker Past Alcohol Use History: None Reported Past Drug Use History: None Reported Medications and Allergies Home Medications Medication Instructions Recorded Confirmed Type Cyclobenzaprine [Flexeril] 10 mg PO HS PRN 01/16/14 06/29/20 History Metoprolol Tartrate [Lopressor] 25 mg PO BID@0800,1800 01/16/14 06/29/20 History Nitroglycerin Sl Tabs [Nitrostat] 0.4 mg SL Q5M PRN 01/16/14 06/29/20 History Insulin Glargine,Hum.rec.anlog 55 unit SQ DAILY 02/11/17 06/29/20 History [Lantus Solostar] metFORMIN HCL 1,000 mg PO BID@0800,1800 02/11/17 06/29/20 History Apixaban [Eliquis] 5 mg PO BID@0800,1800 10/22/19 06/29/20 History Aspirin EC [Ecotrin Low Dose] 81 mg PO DAILY 10/22/19 06/29/20 History Atorvastatin [Lipitor] 20 mg PO DAILY@1800 10/22/19 06/29/20 History Insulin Aspart [NovoLOG Flexpen] See Protocol SQ AC-TID 10/22/19 06/29/20 History Omeprazole 20 mg PO DAILY 10/22/19 06/29/20 History Empagliflozin [Jardiance] 10 mg PO DAILY@0800 06/29/20 06/29/20 History Spironolactone 25 mg PO DAILY@0800 06/29/20 06/29/20 History Allergies Allergy/AdvReac Type Severity Reaction Status Date / Time meclizine [From Antivert] Allergy Hallucinati Verified 06/29/20 08:09 ons Physical Exam Vitals: Vital Signs Temp Pulse Resp BP Pulse Ox 06/29/20 14:56 138/87 06/29/20 10:00 70 138/83 06/29/20 09:44 76 19 153/97 95 06/29/20 06:10 73 18 156/80 96 06/29/20 04:10 98 F 78 18 154/88 93 L Intake and Output 06/29/20 06/29/20 06/29/20 06:59 14:59 22:59 Other: Weight 177.355 kg GENERAL: The patient is alert and oriented x3, not in any acute distress.morbidly obese HEENT: Pupils are round and equally reacting to light. EOMI. No scleral icterus. No conjunctival pallor. CARDIOVASCULAR: S1 and S2 present. No murmurs, rubs, or gallops. PULMONARY: Chest is clear to auscultation, no wheezing or crackles. CHEST : + tenderness in the ub sternal area and epigastric area ABDOMEN: Soft, nontender, nondistended, normoactive bowel sounds. No palpable organomegaly. MUSCULOSKELETAL: No joint swelling or deformity. EXTREMITIES: No cyanosis, clubbing, bilateral pitting pedal edema. Chronic venous changes in both lower extremities. NEUROLOGICAL: Gross neurological examination did not reveal any focal deficits. SKIN: no rash Results CBC & Chem 7: 06/29/20 04:27 06/29/20 04:27 Labs: Abnormal Lab Results - Last 24 Hours (Table) 06/29/20 06/29/20 Range/Units 04:27 04:27 WBC 12.2 H (3.8-10.6) k/uL Glucose 245 H (74-99) mg/dL AST 14 L (17-59) U/L Creatine Kinase 47 L (55-170) U/L C-Reactive Protein 5.1 H (<1.0) mg/dL Assessment and Plan Assessment: ASSESSMENT Atypical chest pain Type 2 diabetes mellitus Hypertension Morbid obesity with BMI of 54 Hyperlipidemia Leukocytosis PLAN: Patient has chest pain that is reproducible, tenderness positive in the substernal area and epigastric area, most likely noncardiac in origin. Patient has cardiac catheterization done in 10/25/2019 showing normal coronaries. EKG and Troponin 3 have been negative. Symptomatic management for now. Patient has been restarted on his home medications. Further recommendations depending on the progress of the patient.
[2020-06-29] MEDS: ASPIRIN 81 MG PO SCH (16:55)
[2020-06-29] MEDS: PANTOPRAZOLE 40 MG TABLET PO SCH (16:55)
[2020-06-29 17:53] LABS: Glucose,Whole Blood 127 mg/dL (75-99)
[2020-06-29] MEDS: INSULIN DETEMIR (LEVEMIR) 100 UNIT/ML SYR SQ SCH (17:55)
[2020-06-29] MEDS: INSULIN ASPART (NovoLOG) 100 UNIT/ML VIAL SQ SCH (18:02)
[2020-06-29] MEDS: ATORVASTATIN 20 MG TAB PO SCH (18:30)
[2020-06-29] MEDS: METOPROLOL TARTRATE 25 MG TAB PO SCH (18:30)
[2020-06-29] MEDS: metFORMIN 500 MG TAB PO SCH (18:30)
[2020-06-29] MEDS: APIXABAN 5 MG TAB PO SCH (18:31)
[2020-06-30 07:01] LABS: Glucose,Whole Blood 147 mg/dL (75-99)
[2020-06-30] MEDS: INSULIN DETEMIR (LEVEMIR) 100 UNIT/ML SYR SQ SCH (08:35)
[2020-06-30] MEDS: METOPROLOL TARTRATE 25 MG TAB PO SCH ×2 (08:36→17:38)
[2020-06-30] MEDS: metFORMIN 500 MG TAB PO SCH ×2 (08:36→17:39)
[2020-06-30] MEDS: PANTOPRAZOLE 40 MG TABLET PO SCH (08:36)
[2020-06-30] MEDS: ASPIRIN 81 MG PO SCH (08:36)
[2020-06-30] MEDS: INSULIN ASPART (NovoLOG) 100 UNIT/ML VIAL SQ SCH ×3 (08:36→17:39)
[2020-06-30] MEDS: APIXABAN 5 MG TAB PO SCH ×2 (08:36→17:38)
[2020-06-30] MEDS: SPIRONOLACTONE 25 MG TAB PO SCH (08:36)
[2020-06-30] MEDS: NON FORMULARY DRUG (Empagliflozin [Jardiance] 10 MG Tablet) PO SCH (08:37)
[2020-06-30 09:07] LABS: Chol/HDL Ratio 4.19; LDL Cholesterol,Calculated 76.4 mg/dL (0.0-131.0); VLDL Calculation 25.6 mg/dL (5.00-40.00)
--- NOTE | 2020-06-30 11:59 | ECHOF ---
Referral Reason:cp MEASUREMENTS -------- HEIGHT: 162.6 cm WEIGHT: 177.4 kg BP: RVIDd: 3.2 cm (< 3.3) IVSd: 1.4 cm (0.6 - 1.1) LVIDd: 4.5 cm (3.9 - 5.3) LVPWd: 1.9 cm (0.6 - 1.1) IVSs: 1.7 cm LVIDs: 3.3 cm LVPWs: 1.6 cm Ao Diam: 3.0 cm (2.0 - 3.7) MV EXCURSION: 16.399 mm (> 18.000) MV EF SLOPE: 63 mm/s (70 - 150) EPSS: 0.2 cm MV E Robel: 0.56 m/s MV DecT: 188 ms MV A Robel: 0.77 m/s MV E/A Ratio: 0.73 FINDINGS -------- Sinus rhythm. Morbid Obesity This was a techncally difficult study with suboptimal views, , Definity utilized for enhancement of images. The left ventricular size is normal. There is moderate concentric left ventricular hypertrophy. O verall left ventricular systolic function is normal with, an EF between 55 - 60 %. The right ventricle is normal in size. The left atrial size is normal. The right atrial size is normal. The aortic valve was not well visualized. The mitral valve was not well visualized. Mild mitral regurgitation is present. The tricuspid valve was not well visualized. Mild tricuspid regurgitation present. Right ventricu lar systolic pressure is normal at < 35 mmHg. The pulmonic valve was not well visualized. The aortic root size is normal. Echo free space indicative of a pericardial fat pad. CONCLUSIONS -------- 1. Morbid Obesity 2. This was a techncally difficult study with suboptimal views, , Definity utilized for enhancement o f images. 3. There is moderate concentric left ventricular hypertrophy. 4. Overall left ventricular systolic function is normal with, an EF between 55 - 60 %. 5. The left atrial size is normal. 6. The aortic valve was not well visualized. 7. The mitral valve was not well visualized. 8. Mild mitral regurgitation is present. 9. The tricuspid valve was not well visualized. 10. Mild tricuspid regurgitation present. 11. Echo free space indicative of a pericardial fat pad. DESIGN QUALITY ENGINEER: Love Guzman RDCS
[2020-06-30 12:17] LABS: Glucose,Whole Blood 149 mg/dL (75-99)
--- NOTE | 2020-06-30 17:23 | P.PN ---
Subjective Progress Note Date: 06/30/20 Principal diagnosis: Atypical chest pain Mr. Rueda is a 64-year-old male with a past medical history of morbid obesity, atrial fibrillation, hypertension, hyperlipidemia, type 2 diabetes mellitus coming into the hospital with a chief complaint of chest pain. Patient states that he has been having chest pain mostly in the left side of the chest that has been radiating to the substernal area and epigastric area. Patient denies having any relationship of this chest pain with food. He states that when he presses on his epigastric area his chest pain is more. He denies having any nausea vomiting or diarrhea. No abdominal pain. He denies having any dysuria or hematuria. Patient denies having any fever chills or rigors. He states that he has chronic lower extremity swelling. He mentions about his recent change in his medications he was started on Spirinolactone and Empagiflozin recently. Patient states that he had a fall from 12 feet height, 10 years back and had back surgery and since then has been on disability. But he is able to do his yard work by himself. Patient denies having any exertional dyspnea. No recent travel. In the ER at the time of admission his vitals are temperature 90.8, heart rate 78, respiratory rate 18, blood pressure 154/88, saturating 93% on room air. He had an EKG and chest x-ray done showing no acute abnormalities. Labs reviewed showing white count of 12.2, hemoglobin 15.1, platelets 173. D-dimer 0.35. Sodium 138, potassium 4.3, chloride 101, bicarb 30, BUN/creatinine 17, creatinine 0.68. He had 3 troponins that are less than 0.012. Melissa virus PCR negative. On 06/30/2020 - patient was seen and examined at the bedside. He still complains of pain in the epigastric region that is slightly radiating to the right upper quadrant. Patient denies having any nausea vomiting. No relationship of the pain with food. Patient denies having any chest pain or palpitations. No cough or difficulty in breathing. No swelling of his lower extremities. No dysuria or hematuria. On reviewing his vitals temperature of 98.1, heart rate 76, respiratory 18, blood pressure 1 12 x 70, saturating at 98% on room air. Patient's labs and medications have been reviewed. Objective - Vital Signs Vital signs: Vital Signs Temp 98.1 F 06/30/20 15:00 Pulse 76 06/30/20 15:00 Resp 18 06/30/20 15:00 BP 112/70 06/30/20 15:00 Pulse Ox 98 06/30/20 15:00 Intake & Output 06/29/20 06/30/20 06/30/20 18:59 06:59 18:59 Weight 177.355 kg Other: Voiding Method Toilet # Voids 1 2 - Exam GENERAL: The patient is alert and oriented x3, not in any acute distress.morbidly obese HEENT: Pupils are round and equally reacting to light. EOMI. No scleral icterus. No conjunctival pallor. CARDIOVASCULAR: S1 and S2 present. No murmurs, rubs, or gallops. PULMONARY: Chest is clear to auscultation, no wheezing or crackles. CHEST : + tenderness in the sub sternal area and epigastric area and also RUQ ABDOMEN: Soft, nontender, nondistended, normoactive bowel sounds. No palpable organomegaly. MUSCULOSKELETAL: No joint swelling or deformity. EXTREMITIES: No cyanosis, clubbing, bilateral pitting pedal edema. Chronic venous changes in both lower extremities. NEUROLOGICAL: Gross neurological examination did not reveal any focal deficits. SKIN: no rash - Labs CBC & Chem 7: 06/29/20 04:27 06/29/20 04:27 Labs: Abnormal Lab Results - Last 24 Hours (Table) 06/29/20 06/30/20 06/30/20 Range/Units 17:50 05:45 06:59 POC Glucose (mg/dL) 127 H 147 H (75-99) mg/dL HDL Cholesterol 32.0 L (40.0-60.0) mg/dL 06/30/20 Range/Units 12:15 POC Glucose (mg/dL) 149 H (75-99) mg/dL HDL Cholesterol (40.0-60.0) mg/dL Assessment and Plan Assessment: ASSESSMENT Atypical chest pain Epigastric and right upper quadrant pain Type 2 diabetes mellitus Hypertension Morbid obesity with BMI of 54 Hyperlipidemia Leukocytosis PLAN: Patient has chest pain that is reproducible, tenderness positive in the substernal area and epigastric area, most likely noncardiac in origin. Patient has cardiac catheterization done in 10/25/2019 showing normal coronaries. EKG and Troponin 3 have been negative. As the patient has ongoing pain in the epigastric area and right upper quadrant, we will order an ultrasound of the abdomen. Continue with Protonix, Will check for AST ALT, alkaline phosphatase, amylase and lipase. Further recommendations depending on the progress of the patient.
[2020-06-30 17:24] LABS: Glucose,Whole Blood 162 mg/dL (75-99)
[2020-06-30] MEDS: ATORVASTATIN 20 MG TAB PO SCH (17:39)
[2020-06-30 20:15] LABS: Glucose,Whole Blood 160 mg/dL (75-99)
[2020-07-01 08:00] VITALS: BP 138/79; PULSE 73; RESP 18; TEMP 98
[2020-07-01 08:19] LABS: Glucose,Whole Blood 139 mg/dL (75-99)
[2020-07-01] MEDS: ASPIRIN 81 MG PO SCH (09:11)
[2020-07-01] MEDS: PANTOPRAZOLE 40 MG TABLET PO SCH (09:11)
[2020-07-01] MEDS: METOPROLOL TARTRATE 25 MG TAB PO SCH (09:12)
[2020-07-01] MEDS: NON FORMULARY DRUG (Empagliflozin [Jardiance] 10 MG Tablet) PO SCH (09:12)
[2020-07-01] MEDS: metFORMIN 500 MG TAB PO SCH (09:12)
[2020-07-01] MEDS: SPIRONOLACTONE 25 MG TAB PO SCH (09:12)
[2020-07-01] MEDS: APIXABAN 5 MG TAB PO SCH (09:12)
[2020-07-01] MEDS: INSULIN DETEMIR (LEVEMIR) 100 UNIT/ML SYR SQ SCH (09:12)
[2020-07-01] MEDS: INSULIN ASPART (NovoLOG) 100 UNIT/ML VIAL SQ SCH (09:24)
[2020-07-01 10:23] LABS: HCT 42.3 % (39.6-50.0); HGB 13.8 g/dL (13.0-17.0); MCHC 32.6 g/dL (32.0-37.0); MCV 85.8 fL (80.0-97.0); Mean Platelet Volume 11.2 fL (9.5-12.2); Platelet Count 182 X 10*3/uL (140-440); RBC 4.93 X 10*6/uL (4.40-5.60); RDW 13.9 % (11.5-14.5); WBC 10.08 X 10*3/uL (4.50-10.00)
--- NOTE | 2020-07-01 10:41 | US ---
EXAMINATION TYPE: US abdomen complete DATE OF EXAM: 07/01/2020 COMPARISON: CT abdomen June 14, 2019 CLINICAL HISTORY: RUQ abdominal pain . Morbidly obese patient thus limited US exam; diabetic EXAM MEASUREMENTS: Liver Length: 20.9 cm Gallbladder Wall: 0.26 cm CBD: 0.37 cm Spleen: 14.0 cm Right Kidney: 12.7 x 7.5 x 5.0 cm Left Kidney: 14.0 x 7.8 x 5.9 cm Pancreas: hyperechoic and limitedly seen due to overlying bowel gas Liver: enlarged as is greater than18.0cm; multiple hepatic cysts are seen with largest right lobe co mplex cyst noted superiorly = 3.7 x 3.9 x 4.0cm; largest left lobe complex cyst noted superiorly = 3 .0 x 3.6 x 2.7cm. Gallbladder: isoechoic mid posterior wall echoes noted and may be sludge as patient has been in hosp [place] x 3 days; favor artifact Evidence for sonographic Crowley's sign: no CBD: wnl Spleen: enlarged as is greater than 13.0cm. Right Kidney: No hydronephrosis or masses seen Left Kidney: No hydronephrosis or masses seen Upper IVC: wnl Abd Aorta: limitedly seen due to decreased penetration, but size is less than 3.0cm in observed aort a. Exam suboptimal due to patient's large body habitus. Suboptimal evaluation of pancreas on initial april ges saved. Suboptimal evaluation of abdominal aorta, visualized portions show no AAA. Suboptimal eval uation of the liver, some scattered thin-walled cysts are felt redemonstrated. Visualized liver is he terogeneously hyperechoic. Evaluation for focal masses is suboptimal due to this and body habitus. Ga llbladder has some distended margins. No shadowing mobile gallstones. Mild splenomegaly in today's st udy. . IMPRESSION: Suboptimal study. No acute findings evident.
[2020-07-01 11:02] LABS: African American GFR (CKD) 123.1 (60.0-200.0); Albumin 3.6 g/dL (3.80-4.90); Albumin/Globulin Ratio 1.89 (1.60-3.17); Anion Gap 5.9 mmol/L (4.00-12.00); Calcium 8.6 mg/dL (8.7-10.3); Carbon Dioxide 28.1 mmol/L (21.6-31.8); Globulin 1.9 g/dL (1.6-3.3); Non-African American GFR(CKD) 106.3 (60.0-200.0); Total Bilirubin 0.5 mg/dL (0.2-1.2); Total Protein 5.5 g/dL (6.2-8.2)
[2020-07-01 11:25] LABS: Glucose,Whole Blood 196 mg/dL (75-99)
--- NOTE | 2020-07-02 14:31 | P.DS ---
Providers Date of admission: 06/29/20 06:38 Expected date of discharge: 07/01/20 Attending physician: Berna Frye Consults: 06/29/20 06:37 Consult Physician Urgent Consulting Provider: Bruce El Consult Reason/Comments: cp Do you want consulting provider notified?: Yes Primary care physician: [facility] Hospital Course: Final diagnosis Atypical chest pain Epigastric and right upper quadrant pain Type 2 diabetes mellitus Hypertension Morbid obesity with BMI of 54 Hyperlipidemia Leukocytosis Discharge disposition Patient is being discharged in stable condition with guarded prognosis to home. Patient will follow-up with Dr. Gan at the [facility] in the outpatient setting upon discharge. Patient also instructed to follow-up with cardiology Dr. Benitez as scheduled. Total time taken is greater than 35 minutes. Hospital course Atypical chest pain Mr. Rueda is a 64-year-old male with a past medical history of morbid obesity, atrial fibrillation, hypertension, hyperlipidemia, type 2 diabetes mellitus coming into the hospital with a chief complaint of chest pain. Patient states that he has been having chest pain mostly in the left side of the chest that has been radiating to the substernal area and epigastric area. Patient denies having any relationship of this chest pain with food. He states that when he presses on his epigastric area his chest pain is more. He denies having any nausea vomiting or diarrhea. No abdominal pain. He denies having any dysuria or hematuria. Patient denies having any fever chills or rigors. He states that he has chronic lower extremity swelling. He mentions about his recent change in his medications he was started on Spirinolactone and Empagiflozin recently. Patient states that he had a fall from 12 feet height, 10 years back and had back surgery and since then has been on disability. But he is able to do his yard work by himself. Patient denies having any exertional dyspnea. No recent travel. In the ER at the time of admission his vitals are temperature 90.8, heart rate 78, respiratory rate 18, blood pressure 154/88, saturating 93% on room air. He had an EKG and chest x-ray done showing no acute abnormalities. Labs reviewed showing white count of 12.2, hemoglobin 15.1, platelets 173. D-dimer 0.35. Sodium 138, potassium 4.3, chloride 101, bicarb 30, BUN/creatinine 17, creatinine 0.68. He had 3 troponins that are less than 0.012. Melissa virus PCR negative. On 06/30/2020 - patient was seen and examined at the bedside. He still complains of pain in the epigastric region that is slightly radiating to the right upper quadrant. Patient denies having any nausea vomiting. No relationship of the pain with food. Patient denies having any chest pain or palpitations. No cough or difficulty in breathing. No swelling of his lower extremities. No dysuria or hematuria. On reviewing his vitals temperature of 98.1, heart rate 76, respiratory 18, blood pressure 1 12 x 70, saturating at 98% on room air. 07/01/2020 Patient is seen in follow-up and seen and evaluated by cardiology recommending outpatient follow-up in the next 1-[address] Benitez. Patient underwent 2-D echo showing moderate left ventricular hypertrophy with overall left systolic function normal with an EF of 55-60%. Patient had some abdominal discomfort in the mid epigastric area with some bloating and underwent abdominal ultrasound which was a suboptimal study due to body habitus with no acute findings noted. Liver functions are normal and amylase and lipase are within normal limits. Patient instructed to follow-up with primary care provider and possible GI in the outpatient setting for further testing if symptoms persist. Patient is tolerating diet with no reports of nausea or vomiting noted. Currently no reports of chest pain, shortness of breath, or palpitations. Patient is afebrile. No reports of nausea or vomiting and patient is tolerating diet. Patient will be discharged to home today. On exam vital signs are stable. Cardio S1, S2 are muffled. Respiratory shows diminished breath sounds at the bases with no wheezing or rhonchi noted. Abdomen is soft and nontender. Nervous system shows no focal deficits. Please refer to medication reconciliation sheet for a list of medications Patient Condition at Discharge: Stable Plan - Discharge Summary Discharge Rx Participant: No New Discharge Prescriptions: Continue Metoprolol Tartrate [Lopressor] 25 mg PO BID@0800,1800 Cyclobenzaprine [Flexeril] 10 mg PO HS PRN PRN Reason: Pain Nitroglycerin Sl Tabs [Nitrostat] 0.4 mg SL Q5M PRN PRN Reason: Chest Pain metFORMIN HCL 1,000 mg PO BID@0800,1800 Insulin Glargine,Hum.rec.anlog [Lantus Solostar] 55 unit SQ DAILY Omeprazole 20 mg PO DAILY Apixaban [Eliquis] 5 mg PO BID@0800,1800 Aspirin EC [Ecotrin Low Dose] 81 mg PO DAILY Atorvastatin [Lipitor] 20 mg PO DAILY@1800 Insulin Aspart [NovoLOG Flexpen] See Protocol SQ AC-TID Empagliflozin [Jardiance] 10 mg PO DAILY@0800 Spironolactone 25 mg PO DAILY@0800 Discharge Medication List Cyclobenzaprine [Flexeril] 10 mg PO HS PRN 01/16/14 [History] Metoprolol Tartrate [Lopressor] 25 mg PO BID@0800,1800 01/16/14 [History] Nitroglycerin Sl Tabs [Nitrostat] 0.4 mg SL Q5M PRN 01/16/14 [History] Insulin Glargine,Hum.rec.anlog [Lantus Solostar] 55 unit SQ DAILY 02/11/17 [History] metFORMIN HCL 1,000 mg PO BID@0800,1800 02/11/17 [History] Apixaban [Eliquis] 5 mg PO BID@0800,1800 10/22/19 [History] Aspirin EC [Ecotrin Low Dose] 81 mg PO DAILY 10/22/19 [History] Atorvastatin [Lipitor] 20 mg PO DAILY@1800 10/22/19 [History] Insulin Aspart [NovoLOG Flexpen] See Protocol SQ AC-TID 10/22/19 [History] Omeprazole 20 mg PO DAILY 10/22/19 [History] Empagliflozin [Jardiance] 10 mg PO DAILY@0800 06/29/20 [History] Spironolactone 25 mg PO DAILY@0800 06/29/20 [History] Follow up Appointment(s)/Referral(s): Ramsey Benitez MD [STAFF PHYSICIAN] - 07/08/20 2:00 [facility] - 1-2 days (Please call the office to schedule your follow up appointment.) Patient Instructions/Handouts: Chest Pain (DC) Activity/Diet/Wound Care/Special Instructions: activity as tolerated ECHO completed 06/30/2020 Follow-up cardiology outpatient Follow up with primary care provider upon discharge Continue to monitor blood sugars before meals and at bedtime and keep a diary for primary care follow-up Continue heart healthy consistent carb diet Discharge Disposition: HOME SELF-CARE
== END 2020-07-01 12:02 | disposition home or self-care (01) ==
LOC: EC 04:07 → 6NMEDSUR 06:38
PROVIDERS: ADMIT Hospitalist; ATTEND Hospitalist
DX: R07.89 Other chest pain (principal); R10.13 Epigastric pain; R10.11 Right upper quadrant pain; E11.9 Type 2 diabetes mellitus without complications; E66.01 Morbid (severe) obesity due to excess calories; E78.5 Hyperlipidemia, unspecified; E78.00 Pure hypercholesterolemia, unspecified; I11.9 Hypertensive heart disease without heart failure; D72.829 Elevated white blood cell count, unspecified; I48.0 Paroxysmal atrial fibrillation; Z68.43 Body mass index [BMI] 50.0-59.9, adult; Z79.899 Other long term (current) drug therapy; Z79.82 Long term (current) use of aspirin; Z79.4 Long term (current) use of insulin; Z79.01 Long term (current) use of anticoagulants; Z88.8 Allergy status to other drugs, medicaments and biological substances; Z20.822 Contact with and (suspected) exposure to COVID-19; Z98.1 Arthrodesis status; Z90.89 Acquired absence of other organs; Z87.891 Personal history of nicotine dependence; Z83.3 Family history of diabetes mellitus; Z82.49 Family history of ischemic heart disease and other diseases of the circulatory system; Z82.3 Family history of stroke
CPT/HCPCS: 96376 ×2; 96361; 96374; 99285; 36415; 93005; 93306; 85379; 83880; 80061; 80053 ×2; 82150; 82550; 83605; 83615; 83690 ×2; 83735; 84100; 84484; 85025; 85027; 85610; 85730; 86140; 87635; 71046; 76700; G0378 ×3; J2270; Q9950

== ENCOUNTER → 2021-12-25 | Outpatient (CLI) | payer OTHER ==
[2021-12-25 13:53] LABS: African American GFR (CKD) >90 (>60 ml/min/1.73 sqM); Blood Urea Nitrogen 17 mg/dL (9-20); Non-African American GFR(CKD) >90 (>60 ml/min/1.73 sqM)
--- NOTE | 2021-12-25 23:22 | CT ---
EXAMINATION TYPE: CT soft tissue neck w con DATE OF EXAM: 12/25/2021 COMPARISON: None HISTORY: 66-year-old male C91.10, Z 03.89, F/U leukemia. Observation for mets. TECHNIQUE: Contiguous axial scanning of the soft tissues of the neck performed with IV Contrast, galen ent injected with 40 mL of Isovue 300. Coronal/sagittal reconstructions performed. CT DLP: combined 4889.20 mGycm Automated exposure control for dose reduction was used. FINDINGS: There may be mild to moderate narrowing at the upper petrous segment of the left ICA. Tortuous cavern ous segment left ICA. Otherwise, visualized intracranial structures, orbits and globes, and mastoid a ir cells appear clear. Scattered trace mucosal thickening in the paranasal sinuses, more lobulated mucosal thickening floors of the maxillary sinuses. There is retropharyngeal course of the bilateral common and internal carotid arteries causing impress ion on to the back rm of the pharynx on both sides. Nasopharynx appears clear. Allowing for backwall impressions from the carotid vessels, oropharynx appears grossly clear. Slight asymmetric hypertrophy of the left lingual tonsils. Epiglottis and prevertebral soft tissues are sati sfactory. There is asymmetric thickening along the left aryepiglottic fold, axial image 41 with asymmetric effa cement of the left piriform sinus. Findings may be on a positional basis. Otherwise, glottic and subglottic structures as well as the tracheal column appear clear. Lungs reported separately. Thyroid gland is satisfactory. Submandibular glands and bilateral parotid glands are satisfactory. Borderline sized right parotid space lymph nodes measuring up to 8 mm. Mildly enlarged 1.1 cm left submandibular space lymph node, coronal image 26. Station 2A lymph nodes measure up to 1.2 cm short axis, axial image 50 and coronal image 39. A number of additional scattered prominent but nonenlarged lymph nodes in both sides of the neck cassia uring up to 9 mm short axis. Bones: Mild degenerative disc disease mid to lower cervical spine with facet arthropathy on the left. Chest reported separately. IMPRESSION: 1. A NUMBER OF SCATTERED NONENLARGED AND SOME BORDERLINE TO MILDLY ENLARGED LYMPH NODES THROUGHOUT TH E NECK, FOR EXAMPLE, MEASURING UP TO 8 MM RIGHT PAROTID SPACE, 1.1 CM LEFT SUBMANDIBULAR SPACE, AND 1 .2 CM IN STATION 2A. FINDINGS PROBABLY REACTIVE/POST INFLAMMATORY. CONSIDER SHORT INTERVAL FOLLOW-UP TO ENSURE STABILITY. 2. ASYMMETRIC THICKENING ALONG THE LEFT. THE GLOTTIC FOLD AND ASYMMETRIC EFFACEMENT OF THE LEFT PIRIF ORM SINUS. FINDINGS MAY BE ON A POSITIONAL BASIS. CONSIDER DIRECT VISUALIZATION TO EXCLUDE A MUCOSAL LESION. 3. INCIDENTAL: RETROPHARYNGEAL COURSE OF THE CAROTID ARTERIES.
--- NOTE | 2021-12-25 23:36 | CT ---
EXAMINATION TYPE: CT ChestAbdPelvis w con DATE OF EXAM: 12/25/2021 COMPARISON: CT abdomen 06/14/2019 HISTORY: 66-year-old male C91.10, Z 03.89, F/U leukemia. Observation for mets. TECHNIQUE: Contiguous axial scanning of the chest, abdomen, and pelvis performed with IV Contrast, pa tient injected with 60 mL of Isovue 300. Delayed images through the kidneys were obtained. Coronal/sa gittal reconstructions performed. CT DLP: 4889.20 mGycm Automated exposure control for dose reduction was used. FINDINGS: CHEST: Heart normal size without pericardial effusion. Mild proximal LAD coronary artery calcifications are present. Mild aneurysm ascending aorta 4.1 cm. Conventional arch vessel branching anatomy. Mild aneurysm upper descending thoracic aorta to 3.6 cm. Borderline to mildly enlarged caliber to the main right and left pulmonary arteries measuring 2.6 and 2.9 cm, respectively, suggesting underlying pulmonary hypertension. Numerous small right hilar lymph nodes measure up to 1.1 cm. Subcarinal lymph node is prominent, bord anum size measuring up to 1.5 cm. Additional scattered nonenlarged mediastinal lymph nodes are note d. Mild bilateral gynecomastia. Mild emphysematous change in the lungs with some subtle mosaic attenuation. Mild diffuse bronchial wa ll thickening. No consolidation or pleural effusion. ABDOMEN: Numerous hepatic cysts redemonstrated with cysts measuring up to 4.0 cm. These appear largely similar to prior exam. Portal venous system is patent. No biliary ductal dilatation. Gallbladder, adrenal glands, kidneys, and atrophic pancreas show no gross abnormality. There is splenomegaly at 17.3 cm measured on axial series versus 15.9 cm, previously. Left para-aortic lymph nodes in the retroperitoneum measure up to 2.5 cm which show large fatty hilum . No suspicious soft tissue is identified. No mesenteric lymphadenopathy. No dilated small bowel, free fluid, or free air. Mild to moderate stool burden. Redundant sigmoid colon. No pericolonic inflammatory change. PELVIS: Bladder partially urine distended. Prostate gland measures 3.7 cm wide. Patulous inguinal canals. Bor derline size inguinal lymph nodes measuring up to 1.5 cm on either side. Borderline sized external il iac chain lymph nodes on both sides measuring up to 1.3 cm on the left and 1.0 cm on the right. No ab normal fluid collection in the pelvis. BONES: L4-S1 posterior lumbar fusion with laminectomies. Advanced degenerative disc disease L-1-L2 and L2-L3 . Mild degenerative disc disease midthoracic spine. IMPRESSION: 1. SCATTERED NONENLARGED AND BORDERLINE AND MILDLY ENLARGED LYMPH NODES SUCH IN THE RIGHT HILUM, S UBCARINAL REGION, LEFT PARA-AORTIC RETROPERITONEUM, BILATERAL INGUINAL REGIONS, AND EXTERNAL ILIAC CH AINS. FOR EXAMPLE, MEASURING 1.5 CM SUBCARINAL AND 1.3 CM LEFT EXTERNAL ILIAC CHAIN. WHILE A LEFT PAR A-AORTIC LYMPH NODE MEASURES UP TO 2.5 CM, IT SHOWS A LARGE FATTY HILUM. THESE ARE ALL NONSPECIFIC AN D MAY BE REACTIVE/POST INFLAMMATORY. A NUMBER OF PROMINENT BUT NONENLARGED LYMPH NODES WERE PRESEN T IN THE NECK WELL, CONSIDER SHORT INTERVAL FOLLOW-UP IF THERE IS CONCERN THAT THESE COULD REFLECT LEUKEMIC INVOLVEMENT. 2. SPLENOMEGALY AT 17.3 CM VERSUS 15.9 CM ON 06/14/2019. 3. INCIDENTAL: NUMEROUS HEPATIC CYSTS, MILD ANEURYSM ASCENDING AORTA AT 4.1 CM, MILD EMPHYSEMATOUS CH BRISEYDA, PULMONARY ARTERIAL HYPERTENSION.
== END | disposition home or self-care (01) ==
LOC: RADCTMAIN 12:54
PROVIDERS: ATTEND Internal Medicine
DX: Z03.89 Encounter for observation for other suspected diseases and conditions ruled out (principal); C91.10 Chronic lymphocytic leukemia of B-cell type not having achieved remission; J34.89 Other specified disorders of nose and nasal sinuses; R59.0 Localized enlarged lymph nodes
CPT/HCPCS: 82565; 84520; 70491; 71260; 74177; 36415; Q9967

== ENCOUNTER 2024-06-06 08:47 | Day surgery (SDC) | payer OTHER ==
[2024-06-05 08:54] VITALS: BMI 47.4
[~2024-06-06 08:47] MED LIST: LIDOCAINE 1% (10MG/ML) FOR IV START INTRADERMA PRN
[2024-06-06 09:19] VITALS: RESP 16; TEMP 97
[2024-06-06 09:26] LABS: Glucose,Whole Blood 135 mg/dL (70-110)
[2024-06-06] MEDS: LACTATED RINGERS 1,000 ML IV SCH (09:30)
[2024-06-06] MEDS: IV FLUID CONTINUATION 1,000 ML IV ONE (09:30)
[2024-06-06] MEDS ORDERED: PROPOFOL 10 MG/ML 20 ML VIAL IV ONE (10:06)
--- NOTE | 2024-06-06 10:32 | P.PCN ---
Date of Procedure: 06/06/24 Procedure(s) Performed: BRIEF HISTORY: Patient is a 68-year-old pleasant white male scheduled for an elective colonoscopy as a part of evaluation of rectal bleeding. PROCEDURE PERFORMED: Colonoscopy. With snare polypectomy PREOPERATIVE DIAGNOSIS: Rectal bleeding. IV sedation per Anesthesia. PROCEDURE: After informed consent was obtained, the patient, was brought into the endoscopy unit. IV sedation was administered by Anesthesia under continuous monitoring. Digital rectal examination was normal. Initially the Olympus CF-160 flexible video colonoscope was then inserted in the rectum, gradually advanced into the cecum without any difficulty. Careful examination was performed as the scope was gradually being withdrawn. Ileocecal valve and the appendiceal orifice were visualized and appeared normal. Prep was fair.. Mucosa of the cecum, ascending colon, transverse colon, appeared normal. The descending colon there were 3 polyps measuring between 5 to 6 mm in size removed by snare polypectomy. In the sigmoid colon there were 3 polyps measuring between 6 to 8 mm in size removed by snare polypectomy. In the rectum there were 5 polyps measuring between 6 to 7 mm in size removed by snare polypectomy. Retroflexion was performed in the rectum and no lesions were seen. The patient tolerated the procedure well. IMPRESSION: 3 polyps in the descending colon measuring between 5 mm and 6 mm in size status post polypectomy 3 polyps in the sigmoid colon 6 mm, 7 mm and 8 mm in size status post polypectomy 5 polyps in the rectum measuring 6 to 7 mm in size status post polypectomy RECOMMENDATIONS: Findings of this examination were discussed with the patient as well as his family. He was advised to follow with the biopsy results. If the biopsy was adenoma he can have repeat colonoscopy in 3 years
[2024-06-06 10:56] VITALS: BP 119/68; PULSE 68
== END 2024-06-06 11:26 | disposition home or self-care (01) ==
LOC: ORWHC2ENDO 08:47
PROVIDERS: ATTEND Internal Medicine Gastroenterology
DX: D12.4 Benign neoplasm of descending colon (principal); K62.1 Rectal polyp; K63.5 Polyp of colon
CPT/HCPCS: 88305; 45385; J2704